=== PATIENT | female | born 2000 | race Caucasian/White ===

== ENCOUNTER 2023-01-03 13:07 | Emergency (ER) | payer OTHER, SELFPAY ==
--- NOTE | ~2023-01-03 | CT_ITS ---
EXAMINATION: CT brain wo con DATE: 01/03/2023 15:28 INDICATION: Head injury TECHNIQUE: Computed tomography (CT) of the head was performed without intravenous contrast. The mA wa s adjusted according to patient size. Iterative reconstruction technique was employed. Exam dose: 52 9.67 mGy-cm total exam DLP. COMPARISON: None FINDINGS: No intracranial mass lesion or hemorrhage or recent cerebrovascular accident. No midline sh ift or mass effect. Normal arshad-white matter differentiation. Normal ventricular size. No subdural or epidural hematoma. No skull fracture or bone destruction is detected. The mastoid air cells and included paranasal sinus es are normally developed and aerated. IMPRESSION: No significant abnormality Reviewed, dictated and finalized at [facility]. Reviewed, dictated and finalized at [facility]. IMPRESSION: No significant abnormality
[2023-01-03 13:23] VITALS: BP 169/104; PULSE 73; RESP 18; TEMP 36.9; O2SAT 100
[2023-01-03] MEDS: KETOROLAC (*BKC) 60 MG/2 ML VIAL IM (16:04)
[2023-01-03] MEDS: ONDANSETRON HCL ODT 4 MG TABLET PO (16:04)
--- NOTE | 2023-01-03 16:04 | ED.GENADULT ---
HPI - General Adult General Chief complaint: Head Injury Stated complaint: head injury Time Seen by Provider: 01/03/23 14:49 Source: patient Limitations: no limitations History of Present Illness HPI narrative: This is a 22-year-old female presents to the ED with chief complaint of a head injury today at work. Patient states she was at work when she bent over and struck her forehead on her desk. Denies any loss of consciousness. Denies any wounds. She does complain of some frontal headache and nausea. Also reports some dizziness and difficulty with memory. Denies numbness, weakness, speech changes, vision changes, vomiting, abdominal pain, chest pain, shortness of breath. Related Data Allergies Allergy/AdvReac Type Severity Reaction Status Date / Time No Known Allergies Allergy Unverified 06/27/17 14:59 Review of Systems Review of Systems: CONSTITUTIONAL: Denies fever, chills, or sweats. EYES: Denies visual changes, redness, or discharge. ENT: Denies rhinorrhea, congestion, sore throat, or otalgia. CARDIOVASCULAR: Denies chest pain, palpitations, or edema. RESPIRATORY: Denies cough or dyspnea. GASTROINTESTINAL: See HPI GENITOURINARY: Denies dysuria or hematuria. SKIN: Denies rash or itching. Denies wounds. MUSCULOSKELETAL: Denies back pain, joint pain, or myalgia. NEUROLOGIC: See HPI PSYCHIATRIC: Denies anxiety or depression. Exam Narrative: GENERAL: Well-appearing, well-nourished, and in no acute distress. HEAD: Normocephalic, atraumatic. Mildly tender area to the right frontal forehead. No bruising or deformity. EYES: PERRLA and EOMI. ENT: Nares clear, no rhinorrhea or epistaxis. Mucous membranes moist. Oropharynx without tonsillar hypertrophy exudate or other lesions. NECK: Supple. No adenopathy or masses. CHEST: No respiratory distress. Clear to auscultation. No wheezes rales or rhonchi HEART: Regular rate and rhythm. No murmur heard. Normal peripheral pulses. ABDOMEN: Soft, nontender, nondistended, normal active bowel sounds. EXTREMITIES: Normal range of motion. No edema. SKIN: Warm, dry, no rash. No wounds. NEURO: Alert and oriented x3. No focal deficits. Coordination intact. Cranial nerves II through XII intact. Negative pronator drift. PSYCH: Normal mood and affect. Course Vital Signs Vital signs: Vital Signs Temperature 98.4 F 01/03/23 13:23 Pulse Rate 73 01/03/23 13:23 Respiratory Rate 18 01/03/23 13:23 Blood Pressure 169/104 H 01/03/23 13:23 Pulse Oximetry 100 01/03/23 13:23 Oxygen Delivery Room Air 01/03/23 13:23 Temperature 98.4 F 01/03/23 13:23 Pulse Rate 73 01/03/23 13:23 Respiratory Rate 18 01/03/23 13:23 Blood Pressure 169/104 H 01/03/23 13:23 Pulse Oximetry 100 01/03/23 13:23 Oxygen Delivery Room Air 01/03/23 13:23 Medical Decision Making MDM Narrative Medical decision making narrative: This is a 22-year-old female presents to the ED with chief complaint of head injury onset this afternoon at work. Bent over and struck her forehead on the desk. Denies LOC. Vitals are stable. Hypertensive due to head pain. Neuro exam is grossly normal. CT head is normal as well. Symptoms are consistent with concussion. Discussed the results of the work-up and what to expect with concussion with patient. She is stable for discharge at this point. States she would like to go home and get some rest return precautions given and supportive measures discussed. Gave Zofran and Toradol here in the ED for pain and nausea. Patient is understanding and agreeable with plan for discharge and follow-up with her PCP regarding this concussion. Vital Signs Vital Signs: Vital Signs Temperature 98.4 F 01/03/23 13:23 Pulse Rate 73 01/03/23 13:23 Respiratory Rate 18 01/03/23 13:23 Blood Pressure 169/104 H 01/03/23 13:23 Pulse Oximetry 100 01/03/23 13:23 Oxygen Delivery Room Air 01/03/23 13:23 Temperature 98.4 F 01/03/23 13:23 Pulse Rate 73
== END 2023-01-03 17:14 | disposition home or self-care (01) ==
PROVIDERS: Emergency Provider Physician Assistant
DX: S09.90XA Unspecified injury of head, initial encounter (principal); W22.8XXA Striking against or struck by other objects, initial encounter
CPT/HCPCS: 70450; 96372; 99284; A9270; J1885

== ENCOUNTER 2023-12-28 13:40 | Outpatient (CLI) | payer BC, SELFPAY ==
[2023-12-28 14:24] LABS: Basophils Absolute Auto 0.1 K/mm3 (0.0-0.1); Basophils Percent Auto 0.6 % (0.2-1.2); Eosinophils Absolute Auto 0.4 K/mm3 (0-0.3); Eosinophils Percent Auto 3.3 % (0-4.4); Hematocrit 43.1 % (37.0-47.0); Hemoglobin 14.1 g/dL (12.0-15.0); Immature Granulocyte Absolute 0.05 K/mm3 (0.00-0.031); Immature Granulocyte Percent A 0.5 % (0-0.5); Lymphocytes Absolute Auto 3.84 K/mm3 (0.9-3.2); Lymphocytes Percent Auto 35.1 % (18.3-44.2); Mean Corpuscular HGB Conc 32.7 g/dl (32-36); Mean Corpuscular Hemoglobin 28.7 pg (26-34); Mean Corpuscular Volume 87.6 fl (80-100); Mean Platelet Volume 10.5 fl (7.4-10.4); Monocytes Absolute Auto 0.8 K/mm3 (0.1-0.6); Neutrophils Absolute Auto 5.9 K/mm3 (1.3-6.7); Neutrophils Percent Auto 53.5 % (45.5-73.1); Platelet Count Result 249 k/mm3 (150-375); Red Blood Count 4.92 M/mm3 (4.2-5.4); Red Cell Distribution Width 13.9 % (11.5-14.5)
[2023-12-28 19:56] LABS: Alanine Aminotransferase 27 U/L (6-35); Albumin Level 4.8 g/dL (3.5-5.1); Alkaline Phosphatase 63 U/L (38-126); Anion Gap 9 mmol/L (4-12); Aspartate Amino Transferase 30 U/L (14-36); Blood Urea Nitrogen 12 mg/dL (7-17); Calcium 10.3 mg/dL (8.4-10.2); Carbon Dioxide 26 mmol/L (22-30); Chloride 102 mmol/L (98-107); Cholesterol 249 mg/dL (0-200); Estimated Glomerular Filt Rate > 60; Glucose 88 mg/dL (65-110); HDL Direct 52 mg/dL; Potassium 4.1 mmol/L (3.4-5.0); Sodium 137 mmol/L (137-145); Triglycerides 253 mg/dL (<150)
[2023-12-28 20:05] LABS: Iron 124 ug/dL (37-170)
[2023-12-28 20:07] LABS: LDL Cholesterol Direct 162 mg/dL
[2023-12-28 20:15] LABS: Percent Iron Saturation 28 % (20-50)
[2023-12-28 21:38] LABS: Folic Acid 13.8 ng/mL (2.76->20)
== END 2023-12-28 13:41 | disposition home or self-care (01) ==
LOC: ANHLAB 13:45
PROVIDERS: PCP Family Medicine Sports Medicine; Visit Provider Family Medicine Sports Medicine
DX: Z00.00 Encounter for general adult medical examination without abnormal findings (principal); R53.83 Other fatigue; Z13.21 Encounter for screening for nutritional disorder
CPT/HCPCS: 36415; 80053; 80061; 82607; 82746; 83540; 83550; 84443; 85025

== ENCOUNTER 2024-10-07 08:20 | Outpatient (RCR) | payer BC, SELFPAY | END 2024-12-23 10:15 | disposition home or self-care (01) | LOC: ANHDMC 08:20 | PROVIDERS: PCP Family Medicine Sports Medicine; Visit Provider Obstetrics & Gynecology | DX: O24.410 Gestational diabetes mellitus in pregnancy, diet controlled (principal); Z71.89 Other specified counseling | CPT/HCPCS: G0108 ==

== ENCOUNTER 2024-10-14 08:07 | Inpatient (IN) | payer BC, SELFPAY ==
[2024-10-14] VITALS (104 sets, daily range): BP systolic 110–152; BP diastolic 41–135; PULSE 59–186; RESP 16; TEMP 36.2–37.6; O2SAT 87–100; BMI 30.4
--- NOTE | 2024-10-14 08:07 | LDADM ---
This patient, Taylor Silva, was admitted to [facility]ivery[facility] on 10/14/24 at 08:07. Plans for labor, pain management and were discussed with patient. Patient/family oriented to hospital policies and general routines including ID bracelet, bed and alarms, visiting hours, pain management, procedures, bathroom and other care routines, personal items, smoking policy, room service/diet and guest tray routines, security routines, and visiting hours. Patient/Family are encouraged to report perceived risks to care and to ask questions if they do not understand what they are told or what they should do. See [facility] for further documentation.
--- OUTSIDE RECORDS SUMMARY | 2024-10-14 08:41 | XMS_ITS | Data Portability ---
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 Plan of Treatment Reminders Order Date Submit Date Provider Last Modified By Organization Details Last Modified Time Details Appointments None recorded. Lab RPR (rapid plasma reagin), serum 2017 018 [place] Marcio, 2022 Juih Anaya, [address], [place], [address], 8 07:12:46 CT + NG + TV, DNA, urine/swa b 2017 018 [place] Michael, 2022 Juhi Anaya, [address], [place], [address], 8 07:12:45 hepatitis panel (A+B+C), acute, serum 2017 018 [place] Michael, 2022 Juhi Anaya, [address], [place], [address], 8 07:12:45 HIV 1+2 AB + HIV 1 p24 Ag, qualitati ve immunoass ay, serum 2017 018 [place] Michael, 2022 Juhi Anaya, [address], [place], [address], 8 07:12:46 test, urine 2017 018 [email or web address] In-Office Order, Internal Use Only DO Not Attach Compendium DO Not Attach Compendium, Do Not Delete/merge, [id number] 8 11:31:52 test, urine 2017 018 [email or web address] In-Office Order, Internal Use Only DO Not Attach Compendium DO Not Attach Compendium, Do Not Delete/merge, [id number] 8 18:39:23 urinalysi s, dipstick 2017 018 [email or web address] In-Office Order, Internal Use Only DO Not Attach Compendium DO Not Attach Compendium, Do Not Delete/merge, [id number] 8 18:39:12 CT + NG + TV, DNA, urine/swa b 2017 018 [place] [facility], 2022 Juhi Anaya, [address], [address], 8 14:09:34 [email or web address] s, dipstick 2017 018 [email or web address] In-Office Order, Internal Use Only DO Not Attach Compendium DO Not Attach Compendium, Do Not Delete/merge, 8 19:03:32 test, urine 2017 018 [email or web address] In-Office Order, Internal Use Only DO Not Attach Compendium DO Not Attach Compendium, Do Not Delete/merge, [id number] 8 19:03:32 Referral gynecolog ist referral 2017 018 [email or web address] Not available 8 11:40:36 Procedures None recorded. Surgeries None recorded. Imaging None recorded. Medication Orders Sprintec (28) 0.25 mg-35 mcg tablet [address] [facility] [facility], [place], [address], 8 16:50:35 Nexplanon 68 mg subdermal implant 2017 018 [facility] [address], [address] [place], [address], 10:30:07 ibuprofen 800 mg tablet 2017 INTERFACE [facility] [address], [address] [place], [address], 8 17:42:49 Xulane 150 mcg-35 mcg/24 hr transderm al patch 2017 INTERFACE [facility] [address], [address] [place], [address], 8 17:42:59 Patient TargetsNo targets recorded. Patient Instructions Encounter Date Encounter Id Patient Instructions Last Modified By Organization Details Last Modified Time 12/01/[id number] Patient is UTD on all vaccines - Vidya Barton to enter vaccines into [facility] and patient given copy of vaccine record [email or web address] Not available 12/01/2017 11:26:59 06/27/2018 [id number] painful menstrual cramps: care instructions [email or web address] Not available 06/27/2018 17:42:46 Reason for Referral Nitroglycerin Neutralizer Referral for Ad ult health examination Referring Physician: Shimon Aguilar, Internal Medicine, Encounter Date: 11/14/2017 Results Created Date Observation Date Name Description Value Unit Range Abnormal Flag Note LastModifiedBy Organization Detail LastModifiedTime 06/27/20 18 06/27/2018 pregn kenna test, urine HCG negati ve Not Available In-Office Order Internal Use Only DO Not Attach Compendium DO Not Attach Compendium, Do Not Delete/merge, [id number] 06/27/2018 16:52:50 06/27/20 18 06/27/2018 urina lysis , dipst ick Leukocytes Negati ve Not Available In-Office Order Internal Use Only DO Not Attach Compendium DO Not Attach Compendium, Do Not Delete/merge, [id number] 06/27/2018 16:52:47 06/27/20 18 06/27/2018 urina lysis , dipst ick Nitrite negati ve Not Available In-Office Order Internal Use Only DO Not Attach Compendium DO Not Attach Compendium, Do Not Delete/merge, [id number] 06/27/2018 16:52:47 06/27/20 18 06/27/2018 urina lysis , dipst ick Urobilinogen .2 Not Available In-Of fice Order Internal Use Only DO Not Attach Compendium DO Not Attach Compendium, Do Not Delete/merge, 06/27/2018 16:52:47 06/27/20 18 06/27/2018 urina lysis , dipst ick Protein Trace Not Available In-Office Order Internal Use Only DO Not Attach Compendium DO Not Attach Compendium, Do Not Delete/merge, 06/27/2018 16:52:47 06/27/20 18 06/27/2018 urina lysis , dipst ick pH 7.0 Not Available In-Office Order Internal Use Only DO Not Attach Compendium DO Not Attach Compendium, Do Not Delete/merge, 06/27/2018 16:52:47 06/27/20 18 06/27/2018 urina lysis , dipst ick Blood Non-He molyze d: Trace Not Available In-Office Order Internal Use Only DO Not Attach Compendium DO Not Attach Compendium, Do Not Delete/merge, 06/27/2018 16:52:47 06/27/20 18 06/27/2018 urina lysis , dipst ick Specific [place] 1.020 Not Available In-Off ice Order Internal Use Only DO Not Attach Compendium DO Not Attach Compendium, Do Not Delete/merge, 06/27/2018 16:52:47 06/27/20 18 06/27/2018 urina lysis , dipst ick Ketone Negati ve Not Available In-Office Order Internal Use Only DO Not Attach Compendium DO Not Attach Compendium, Do Not Delete/merge, 06/27/2018 16:52:47 06/27/20 18 06/27/2018 urina lysis , dipst ick Bilirubin Negati ve Not Available In-Office Order Internal Use Only DO Not Attach Compendium DO Not Attach Compendium, Do Not Delete/merge, 06/27/2018 16:52:47 06/27/20 18 06/27/2018 urina lysis , dipst ick Glucose Negati ve Not Available In-Office Order Internal Use Only DO Not Attach Compendium DO Not Attach Compendium, Do Not Delete/merge, [id number] 06/27/2018 16:52:47 04/11/20 18 04/11/2018 urina lysis , dipst ick Leukocytes Negati ve Not Available In-Office Order Internal Use Only DO Not Attach Compendium DO Not Attach Compendium, Do Not Delete/merge, 04/11/2018 17:26:42 04/11/20 18 04/11/2018 urina lysis , dipst ick Nitrite negati ve Not Available In-Office Order Internal Use Only DO Not Attach Compendium DO Not Attach Compendium, Do Not Delete/merge, 04/11/2018 17:26:42 04/11/20 18 04/11/2018 urina lysis , dipst ick Urobilinogen 1 Not Available In-Of fice Order Internal Use Only DO Not Attach Compendium DO Not Attach Compendium, Do Not Delete/merge, 04/11/2018 17:26:42 04/11/20 18 04/11/2018 urina lysis , dipst ick Protein Negati ve Not Available In-Office Order Internal Use Only DO Not Attach Compendium DO Not Attach Compendium, Do Not Delete/merge, 04/11/2018 17:26:42 04/11/20 18 04/11/2018 urina lysis , dipst ick pH 5.5 Not Available In-Office Order Internal Use Only DO Not Attach Compendium DO Not Attach Compendium, Do Not Delete/merge, 04/11/2018 17:26:42 04/11/20 18 04/11/2018 urina lysis , dipst ick Blood Non-He molyze d: Trace Not Available In-Office Order Internal Use Only DO Not Attach Compendium DO Not Attach Compendium, Do Not Delete/merge, 04/11/2018 17:26:42 04/11/20 18 04/11/2018 urina lysis , dipst ick Specific [place] 1.025 Not Available In-Off ice Order Internal Use Only DO Not Attach Compendium DO Not Attach Compendium, Do Not Delete/merge, 04/11/2018 17:26:42 04/11/20 18 04/11/2018 urina lysis , dipst ick Ketone Negati ve Not Available In-Office Order Internal Use Only DO Not Attach Compendium DO Not Attach Compendium, Do Not Delete/merge, [id number] 04/11/2018 17:26:42 04/11/20 18 04/11/2018 urina lysis , dipst ick Bilirubin Negati ve Not Available In-Office Order Internal Use Only DO Not Attach Compendium DO Not Attach Compendium, Do Not Delete/merge, [id number] 04/11/2018 17:26:42 04/11/20 18 04/11/2018 urina lysis , dipst ick Glucose Negati ve Not Available In-Office Order Internal Use Only DO Not Attach Compendium DO Not Attach Compendium, Do Not Delete/merge, [id number] 04/11/2018 17:26:42 04/11/20 18 04/11/2018 pregn kenna test, urine HCG negati ve Not Available In-Office Order Internal Use Only DO Not Attach Compendium DO Not Attach Compendium, Do Not Delete/merge, [id number] 04/11/2018 17:26:40 12/02/19 18 12/01/2017 pregn kenna test, urine HCG negati ve Not Available In-Office Order Internal Use Only DO Not Attach Compendium DO Not Attach Compendium, Do Not Delete/merge, [id number] 12/01/2017 10:59:54 12/02/19 18 12/02/2017 hepat itis panel (A+B+ C), acute , serum hep A Ab, IgM Negati ve negati ve Not Available [facility] ([facility]) [address] [place], [address], 12/05/2017 07:12:45 12/02/19 18 12/02/2017 hepat itis panel (A+B+ C), acute , serum HBsAg screen Negati ve negati ve Not Available [facility] ([facility]) [address] [place], [address], 12/05/2017 07:12:45 12/02/19 18 12/02/2017 hepat itis panel (A+B+ C), acute , serum hep B core Ab, IgM Negati ve negati ve Not Available [facility] ([facility]) [address] [facility], [place], [address], 12/05/2017 07:12:45 12/02/19 18 12/02/2017 hepat itis panel (A+B+ C), acute , serum hep C virus Ab <0.1 s/co_ ratio 0.0-0. 9 Negat naresh: < 0.8 Indet ermin ate: 0.8 - 0.9 Posit naresh: > 0.9 The [facility] recom mends that a posit naresh HCV antib little resul t be follo wed up with a HCV Nucle ic Acid Ampli ficat ion test (5508 13). Not Available [facility] ([facility]) [address] [facility], [place], [address], 12/05/2017 07:12:45 12/02/19 18 12/05/2017 CT + NG + TV, DNA, urine /swab chlamydia by RICARDO Negati ve negati ve Not Available [facility] ([facility]) [address] [place], [address], 12/05/2017 07:12:45 12/02/19 18 12/05/2017 CT + NG + TV, DNA, urine /swab gonococcus by RICARDO Negati ve negati ve Not Available [facility] ([facility]) [address] [place], [address], 12/05/2017 07:12:45 12/02/19 18 12/05/2017 CT + NG + TV, DNA, urine /swab trich vag by RICARDO Negati ve negati ve Not Available [facility] ([facility]) [address] [place], [address], 12/05/2017 07:12:45 12/02/19 18 12/02/2017 RPR (rapi d plasm a reagi n), serum RPR Non Reacti ve non reacti ve Not Available [facility] ([facility]) [address] [place], [address], 12/05/2017 07:12:46 12/02/19 18 12/02/2017 HIV 1+2 AB + HIV 1 p24 Ag, quali tativ e immun oassa y, serum HIV screen 4TH generation wrfx Non Reacti ve non reacti ve Not Available [facility] ([facility]) [address] [place], [address], 12/05/2017 07:12:46 04/11/20 18 04/14/2018 CT + NG + TV, DNA, urine /swab chlamydia by RICARDO NEGATI VE negati ve Not Available [facility] ([facility]) [address] [place], [address], 04/14/2018 14:09:34 04/11/20 18 04/14/2018 CT + NG + TV, DNA, urine /swab gonococcus by RICARDO NEGATI VE negati ve Not Available [facility] ([facility]) [address] [place], [address], 04/14/2018 14:09:34 04/11/20 18 04/14/2018 CT + NG + TV, DNA, urine /swab trich vag by RICARDO NEGATI VE negati ve Not Available [facility] ([facility]) [address] [place], [address], 04/14/2018 14:09:34 08/01/20 18 XR, abdom en No observ [facility]ion [facility] ed[facility] 2017 13:46:58 Result Notes None recorded. Problems No Known Problems Procedures Surgical History Date Name Laterality Status Provider Name and Address Organization Details Recorded Time 8 Control Implant Insertion completed Theo ALVAREZ - [facility] 04/11/2018 18:16:57 Imaging Results Imaging Date Name Status LastModified by Organiz ation Details LastModified Time 08/01/2018 XR, abdomen completed [facility] Information n ot available 08/01/2018 13:46:58 Procedure Notes None recorded. Medical Equipment None Reported. Allergies No known drug allergies Medications Name Sig Start Date Stop Date Status Note LastModified by Organization Details LastModified Time ibuprofen 800 mg tablet Take 1 tablet 3 times a day by oral route. 2017 active Not Available Not Available Not Kathy mcintyre Sprintec (28) 0.25 mg-35 mcg tablet Take 1 tablet every day by oral route. 06/27 completed Not Available Not Available Not Available Nexplanon 68 mg subdermal implant Inject 1 implant by subcutane ous route. 2017 active Not Available Not Available Not Kathy mcintyre Xulane 150 mcg-35 mcg/24 hr transdermal patch Apply 1 patch every week by transderm al route. 2017 active Not Available Not Available Not Kathy mcintyre Vitals Date Recorded Body height Provider Name an d Address Organization Details Last Updated DateTime 11/14/2017 151.13 cm Fermin Shepard MA [facility] 2017 14:11:46 Date Recorded Body mass index (BMI) Body weight Provider Name and Address Organization Details Last Updated DateTime 11/14/2017 20.9 kg/m2 04256.64 g Fermin Shepard MA [facility] 11/14/2017 14:11:50 Date Recorded Body temperature Provider Name a nd Address Organization Details Last Updated DateTime 11/14/2017 98.1 [degF] Fermin Shepard MA [facility] 11/14/2017 14:14:16 Date Recorded Oxygen saturation Oxygen saturation in Arterial blood by Pulse oximetry Provider Name and Address Organization Details Last Updated DateTime 11/14/2017 99 % 99 % Fermin Shepard [place] [facility] [place] [facility] 11/14/2017 14:14:33 Date Recorded Heart rate Provider Name an d Address Organization Details Last Updated DateTime 11/14/2017 83 /min Fermin Shepard MA [facility] 2017 14:14:36 Date Recorded Body height Provider Name an d Address Organization Details Last Updated DateTime 12/01/2017 151.13 cm JORGE Matta [facility] 2017 10:45:58 Date Recorded Body mass index (BMI) Body weight Provider Name and Address Organization Details Last Updated DateTime 12/01/2017 21.6 kg/m2 74234.57 g Vidya Barton MA [facility] 12/01/2017 10:46:15 Date Recorded Body height Provider Name an d Address Organization Details Last Updated DateTime 03/07/2018 151.13 cm Ferminjose MajorJORGE oglesby [facility] 2017 16:13:31 Date Recorded Body mass index (BMI) Body weight Provider Name and Address Organization Details Last Updated DateTime 03/07/2018 21.8 kg/m2 50772.44 g Fermin Shepard MA [facility] 03/07/2018 16:37:16 Date Recorded Body temperature Provider Name a nd Address Organization Details Last Updated DateTime 03/07/2018 98.2 [degF] Fermin Shepard MA [facility] 03/07/2018 16:38:16 Date Recorded Oxygen saturation Oxygen saturation in Arterial blood by Pulse oximetry Provider Name and Address Organization Details Last Updated DateTime 03/07/2018 99 % 99 % Efrminjose ShepardJORGE [facility] 03/07/2018 16:38:34 Date Recorded Heart rate Provider Name an d Address Organization Details Last Updated DateTime 03/07/2018 71 /min Fermin Majorer JORGE [facility] 2017 16:38:37 Date Recorded Body height Provider Name an d Address Organization Details Last Updated DateTime 04/11/2018 151.13 cm Kajal Chavez MA [facility] 04/11 17:16:24 Date Recorded Body mass index (BMI) Body weight Provider Name and Address Organization Details Last Updated DateTime 04/11/2018 21.1 kg/m2 49427.79 g Kajal Chavez MA [facility] 04/11/2018 17:16:32 Date Recorded Body height Provider Name an d Address Organization Details Last Updated DateTime 06/27/2018 151.13 cm Camille Briggs MA [facility] 06/27/2018 16:50:13 Date Recorded Body mass index (BMI) Body weight Provider Name and Address Organization Details Last Updated DateTime 06/27/2018 22.2 kg/m2 81164.35 g Camille Briggs MA [facility] 16:50:17 Date Recorded Systolic blood pressure Diastolic blood pressure Provider Name and Address Organization Details Last Updated DateTime 11/14/2017 106 mm[Hg] 74 mm[Hg] Fermin Shepard MA [facility] 11/14/2017 14:16:10 Date Recorded Systolic blood pressure Diastolic blood pressure Provider Name and Address Organization Details Last Updated DateTime 12/01/2017 104 mm[Hg] 62 mm[Hg] Vidya Barton MA [facility] 12/01/2017 10:53:32 Date Recorded Systolic blood pressure Diastolic blood pressure Provider Name and Address Organization Details Last Updated DateTime 03/07/2018 100 mm[Hg] 62 mm[Hg] Fermin Shepard [facility] 03/07/2018 16:40:12 Date Recorded Systolic blood pressure Diastolic blood pressure Provider Name and Address Organization Details Last Updated DateTime 06/27/2018 118 mm[Hg] 70 mm[Hg] Camille JORGE Briggs [place] [facility] 06/27/2018 16:50:24 Social History Question Answer Notes LastModified by Organizat ion Details LastModified Time Tobacco Smoking Status Never Smoker Fermin Shepard [place], [place] [facility] 11/14/2017 14:12:26 Do You Have An Advance Directive? No Information not available 12/01/2017 What Is Your Level Of Alcohol Consumption? None [email or web address] Information not available 11/14/2017 Is Blood Transfusion Acceptable In An Emergency? Yes [email or web address] Information not available 04/11/2018 What Is Your Level Of Caffeine Consumption? Occasional Information not available 12/01/2017 How Much Tobacco Do You Chew? None Information not available 12/01/2017 Are You Currently Employed? Yes [employer] [email or web address] Information not available 04/11/2018 What Type Of Diet Are You Following? REGULAR Information not available 12/01/2017 Which Illicit Or Recreational Drugs Have You Used? None Information not available 12/01/2017 Education 12 Freshman @ [employer] Information not available 12/01/2017 What Is Your Occupation? [employer] Information not available 12/01/2017 Hard Of Hearing Or Deaf In One Or Both Ears? No Information not available 12/01/2017 Legally Blind In One Or Both Eyes? No Information not available 12/01/2017 Live Alone Or With Others? With Others With Parents Going To Move Out Soon [email or web address] Information not available 04/11/2018 Marital Status Single Informatio n not available 12/01/2017 What Was The Date Of Your Most Recent Tobacco Screening? 06/27/2018 Information not available 04/11/2019 How Many Children Do You Have? 0 [email or web address] Information not available 04/11/2018 Performs Monthly Self-breast Exam? No Information not available 12/01/2017 Do You Use Protection During Sex? Usually [email or web address] Information not available 04/11/2018 What Is Your Relationship Status? Single [email or web address] Information not available 04/11/2018 Seat Belts Used Routinely Yes Information not available 12/01/2017 Are You Sexually Active? Yes [email or web address] Information not available 04/11/2018 Smoke Alarm In Home Yes Information not available 12/01/2017 How Much Tobacco Do You Smoke? No [email or web address] Information not available 04/11/2018 General Stress Level Medium Information not available 12/01/2017 Do You Use Sunscreen Routinely? Yes Information not available 12/01/2017 How Many Years Have You Smoked Tobacco? 0 [email or web address] Information not available 04/11/2018 Sex: Unknown Functional Status Question Answer Note LastModified by Organization D etails LastModified Time What is your exercise level? None Information not available 12/01/2017 Mental Status None recorded. Family History Relationship Description Onset Age of this Age Resolved Age Notes LastModified by Organization Details LastModified Time Father No current problems or disability Not available 11/16 10:48:01 Mother No current problems or disability Not available 11/16 10:48:01 Paternal Grandfather Family history of malignant neoplasm [email or web address] Not available 04/11 17:22:57 Paternal Grandfather Diabetes mellitus [email or web address] Not available 04/11 17:23:23 Paternal Grandmother Diabetes mellitus [email or web address] Not available 04/11 17:23:23 Maternal Grandmother Diabetes mellitus [email or web address] Not available 04/11 17:23:45 Medical History Condition Response Coronary Artery Disease N Other N Atrial Fibrillation N High Blood Pressure N Breast Cancer N Thyroid Problems N Kidney or Bladder Problems N Lung Disease N Depression N COPD N Blood Clots N GI Problems N Acne Y Breast Problem N Eating Disorder N Anemia Heart Attack ([place]) N Headaches/Migraines N Anxiety Disorder Y Diabetes N Ovarian Cancer N Muscle, Joint, or Bone Problems N Blood Transfusions N Seizures/Epilepsy N Infertility N Polyps N Acid Reflux (GERD) N Cancer N Abuse/Domestic Violence N Asthma N Endometriosis N High Cholesterol N Hepatitis N Liver Disease N Heart Disease N Headaches Y Pre-Eclampsia N Heart Failure N Osteoporosis N Gynecological History Statement/Question Response Flow Heavy Date of LMP 02/27/2018 STIs/STDs N HPV Vaccine Y Duration of Flow (days) 5 Age at Menarche 11 Current Control Method Implant Age at First Child 11 Frequency of Cycle (Q days) 28 Sexually Active? Y Menses Monthly Y Sexual Problems? N LMP Approximate Obstetrics History GPAL:G 0 P 0 0 0 0 Type Value Multiple Births 0 Full Term 0 Induced 0 Spontaneous 0 Premature 0 Living 0 Ectopics 0 Total 0 Immunizations Vaccine Type Date Status Note Provider Nam e and Address Organization Details Recorded Time varicella 8 completed Not Available [facility] 10/05/2019 02:35:19 Tdap 0 completed Elena Thibodeaux PA-C Attn: [address] [place], [address], [facility] 12/01/2017 10:57:21 varicella 4 completed Elena Thibodeaux PA-C Attn: [address] [place], [address], [facility] 12/01/2017 12:59:48 polio, unspecified formulation 8 completed Elena Thibodeaux PA-C Attn: [address] [place], [address], [facility] 12/01/2017 13:00:04 polio, unspecified formulation 9 completed Elena Thibodeaux PA-C Attn: [address] [place], [address], [facility] 12/01/2017 13:00:08 polio, unspecified formulation 9 loren Thibodeaux PA-C Attn: Accounting[address] [facility], [place], [address], [place] [facility] 12/01/2017 13:00:12 polio, unspecified formulation 4 completed Elena Thibodeaux PA-C Attn: Accounting[address] [facility], [place], [address], [place] [facility] 12/01/2017 13:00:15 meningococcal ACWY, unspecified formulation 0 completed Elena Thibodeaux PA-C Attn: Accounting,[address] [facility], [place], [address], [place] [facility] 12/01/2017 13:00:27 meningococcal ACWY, unspecified formulation 3 completed Elena Thibodeaux PA-C Attn: Accounting,[address] [facility], [place], [address], [place] [facility] 12/01/2017 13:00:34 MMR 9 completed Elena Thibodeaux PA-C Attn: Accounting,[address] [facility], [place], [address], [place] [facility] 12/01/2017 13:00:43 MMR 0 completed Elena Thibodeaux PA-C Attn: Accounting,[address] [facility], [place], [address], [place] [facility] 12/01/2017 13:00:47 HPV, unspecified formulation 0 completed Elena Thibodeaux PA-C Attn: Accounting,[address] [facility], [place], [address], [place] [facility] 12/01/2017 13:01:02 HPV, unspecified formulation 2 completed Elena Thibodeaux PA-C Attn: Accounting,[address] [facility], [place], [address], [place] [facility] 12/01/2017 13:01:10 HPV, unspecified formulation 3 completed Elena Thibodeaux PA-C Attn: Accounting[address] [facility], [place], [address], [place] [facility] 12/01/2017 13:01:16 Hep B, unspecified formulation 8 completed Elena Thibodeaux PA-C Attn: Accounting[address] [facility], [place], [address], [place] [facility] 12/01/2017 13:01:31 Hep B, unspecified formulation 8 completed Elena Thibodeaux PA-C Attn: Accounting[address] [facility], [place], [address], [place] [facility] 12/01/2017 13:01:38 Hep B, unspecified formulation 9 completed Elena Thibodeaux PA-C Attn: Accounting,[address] [facility], [place], [address], [place] [facility] 12/01/2017 13:02:03 Hep A, pediatric, unspecified formulation 2 completed Elena Thibodeaux PA-C Attn: Accounting,[address] [facility], [place], [address], [place] [facility] 12/01/2017 13:02:13 Hep A, pediatric, unspecified formulation 3 completed Elena Thibodeaux PA-C Attn: Accounting,[address] [facility], [place], [address], [place] [facility] 12/01/2017 13:02:17 Hib, unspecified formulation 8 completed Elena Thibodeaux PA-C Attn: Accounting,[address] [facility], [place], [place], [address], [place] - [facility] 12/01/2017 13:02:44 Hib, unspecified formulation 9 completed Elena Thibodeaux PA-C Attn: Accounting,204 1 [facility], [place], [address], [place] [facility] 12/01/2017 13:02:49 Hib, unspecified formulation 9 completed Elena Thibodeaux PA-C Attn: Accounting,204 1 [facility], [place], [address], [facility] - [facility] 12/01/2017 13:02:53 Hib, unspecified formulation 0 completed Elena Thibodeaux PA-C Attn: Accounting,204 1 [facility], [place], [address], [facility] - [facility] 12/01/2017 13:02:59 DTP 8 completed Elena Thibodeaux PA-C Attn: Accounting,204 1 [facility], [place], [address], [facility] - [facility] 12/01/2017 13:03:09 DTP 9 completed Elena Thibodeaux PA-C Attn: Accounting,204 1 [facility], [place], [address], [facility] - [facility] 12/01/2017 13:03:13 DTP 9 completed Elena Thibodeaux PA-C Attn: Accounting,204 1 [facility], [place], [address], [facility] - [facility] 12/01/2017 13:03:18 DTP 0 completed Elena Thibodeaux PA-C Attn: Accounting,204 1 [facility], [place], [address], [facility] - [facility] 12/01/2017 13:03:23 Past Encounters Encounter ID Performer Location Encounter Start Date Encounter Closed Date Diagnosis/Indication Diagnosis SNOMED-CT Code Diagnosis ICD10 Code Diagnosis Note [id number] [facility] (Adult Med) [address] [place] [address] 11/14/2017 13:57:02 11/14/2017 14:35:31 Adult health examination 265818632 Z00.00 [id number] [facility] (HIGH SCHOOL PROFESSIONAL) [address] [place] [address] 12/01/2017 10:29:30 12/04/2017 11:33:11 Contraception care management 219969185 Z30.9 Condoms to prevent against STDsStart OCPs Monday after your start your next cycle - given informatio n concerning Nexplanon as well Venereal d isease screening 491490604 Z11.3 Active or passive immunization 692679119 Z23 [id number] MD Sully Hung (Adult Med) [address] [place] [address] 03/07/2018 15:53:55 03/12/2018 11:10:16 Chronic anxiety 284821451 F41.9 Called today, appointmen t 03-30-2018 and 04-19-2018 at [facility], she said that her father just taxed her to tell this office to prescribe what he ias taking, but Dr. Aguilar explained to her that he can not compare apple vs orange, even her diagnosis has not been establishe d with certainty, therefor it is best to go to behavior health clinic for the profession al help, she understood and agreed, she also can go to ER any time for any concern. [id number] Theo Virk (HIGH SCHOOL PROFESSIONAL) [address] [place] [address] 04/11/2018 16:32:18 04/12/2018 12:51:55 Family planning education 603301081 Z30.02 Insertion of subcutaneous contraceptive 741501047 Z30.516 [id number] Theo Virk (HIGH SCHOOL PROFESSIONAL) [address] [place] [address] 06/27/2018 15:53:19 06/28/2018 09:21:15 Surveillance of subcutaneous contraceptive implant 797030235 Z30.46 Family lilliam nning surveillance 944214295 Z30.09 Dysmenorrhea 172891316 N 94.6 Health Concerns Section Related Observation LastModified by Organization Detai ls LastModified Time None Recorded Concern Status LastModified by Organization Details LastModified Time None Recorded Advance Directives Directive N: Payers Encounter Date Sequence Insurance Name Policy Number Policy Gambino Covered Member ID Gambino Member ID Guarantor Name 11/14/2017 1 [place] [facility] Taylor Silva [id number] Taylor Silva 12/01/2017 1 [place] [facility] Taylor Silva [id number] Taylor Silva 03/07/2018 2 [facility] - DOS PRIOR TO 2021 (MEDICAID REPLACEMENT - HMO) Taylor Silva [id number] Taylor Silva 03/07/2018 1 [facility] Taylor Silva [id number] Taylor Silva 04/11/2018 2 [facility] PRIOR TO 03/18/2021 (MEDICAID REPLACEMENT - HMO) Taylor Silva [id number] Taylor Silva 04/11/2018 1 [facility] Taylor Silva [id number] Taylor Silva 06/27/2018 2 [facility] PRIOR TO 03/18/2021 (MEDICAID REPLACEMENT - HMO) Taylor Silva [id number] Taylor Silva 06/27/2018 1 [facility] Taylor Silva [id number] Taylor Silva Notes Date Note Type Note Provider Name and Address Organization Details Recorded Time 11/14/2017 text/html First time, [facility] is here. control, NKDA. Fermin Shepard MA null, [facility] 11/14/2017 14:41:33 12/01/2017 text/html 17YO female presents for OCP consultation. Has been on OCPs in the past without an issue. Vidya Barton MA null, [place] - [facility] 12/01/2017 13:01:49 03/07/2018 text/html She said that sh meet has bad anxiety, but she dose not go to behavior health clinic as referred since last office visit 11-14-2017, and she saw PAC Ms. Thibodeaux on 03-06-2018. Shimon Aguilar MD Attn: Accounting,[address] [place], [address], [facility] - [facility] 03/07/2018 17:30:01 04/11/2018 text/html OCP CheckReporte d bypatient.Associate d Symptoms:regular menses; no BTB menses; no side effects 17YO female presents for bc consultation. desires nexplanon Theo Pearl null, [place] [facility] 04/11/2018 20:08:39 06/27/2018 text/html OCP CheckReporte d bypatient.Context:n umber of OCP cycles completed:3; reason for starting OCPs: control Associated Symptoms:no BTB menses;irregular menses; pelvic pain 18yo WF, , presents to clinic for Nexplanon check. Placed 04/11/18. She reports painful menses and menorrhagia. Theo Pearl [facility], [place] - [facility] 06/27/2018 23:35:41 OBGyn Episode No OBEpisode recorded.
--- OUTSIDE RECORDS SUMMARY | 2024-10-14 08:42 | XMS_ITS | Referral Summary ---
Author Organization [facility] Address [address] [place] [address] Care Team Providers Care Correctional Classification Counselor Name Role Phone Kishor Giang MD Primary Care Provider [phone] Source Comments [facility],non-owned Affiliates and Associated Physician Practices is amultiple site organization consisting of ambulatory clinics and hospital sitesin [place], [place], [place] and [place]. This disclosure is being madepursuant to the Care Everywhere program and may not contain all information available regarding this patient. Last updated 18.[facility] Allergies No known active allergies Medications * Be aware that medications may not be up to date on this document. Alwaysverify current medications with the patient. Medication Sig Dispensed Refills Start Date End Date Status Vit-Fe Fumarate-FA ( vitamin) 28-0.8 MG tablet Take 1 (one) tablet by mouth once daily Active PROGESTERONE, VAGINAL, 4 % Insert into the vagina once daily Active indomethacin (Indocin) 25 MG capsule Take 1 (one) capsule by mouth every 6 hours 7 capsule 06/26/2024 Active Progesterone 200 MG capsule Take 1 (one) capsule by mouth at bedtime 90 capsule 1 06/26/2024 Active Active Problems Problem Noted Date Diagnosed Date Pelvic pain during in second trimester, antepartum 06/25/2024 Estimated Date of Delivery Comme nts Yes 11/06/2024 Based on Patient Reported Immunizations Name Administration Dates Next Due DTaP VACCINE IM (6wk-6yrs) 10/26/1999,04/01/1999 ,1998,1998 HEP A PEDS 2 DOSE 04/03/2013,04/10/2012 HEP B VACCINE, PED/ADOL 1998,1998, HIB-PRP-T 4 DOSE 10/26/2009,04/01/1999, 9,1998 Human Papilloma Virus Vaccine 04/03/2013, 012,05/03/2010 MENINGOCOCAL MENINGITIS 04/03/2013 MMR 05/03/2010,04/01/1999 POLIO IPV 01/07/2014,04/01/1999,1998 ,1998 TDAP (7yrs+) 05/03/2010 VARICELLA 01/07/2014 Social History Tobacco Use Types Packs/Day Years Used Date Smoking Tobacco: Passive Smo ke Exposure - Never Smoker Smokeless Tobacco: Never Alcohol Use Standard Drinks/Week Comments No 0 (1 standard drink = 0.6 oz pur e alcohol) Overall Financial Resource Strain (CARDIA) Answe r Date Recorded How hard is it for you to pa y for the very basics like food, housing, medical care, and heating? Not hard at all 06/25/2024 [facility] - Occupational Stress Questionnaire Answer Date Recorded Do you feel stress - tense, restless, nervous, or anxious, or unable to sleep at night because your mind is troubled all the time - these days? Not at all 06/25/2024 Hunger Vital Sign Answer Date Recorded Within the past 12 months, y ou worried that your food would run out before you got the money to buy more. Never true 06/25/20 24 Within the past 12 months, t he food you bought just didn't last and you didn't have money to get more. Never true 06/25/2024 PRAPARE - Transportation Answer Date Re corded In the past 12 months, has l ack of transportation kept you from medical appointments or from getting medications? No 04/2024 In the past 12 months, has l ack of transportation kept you from meetings, work, or from getting things needed for daily living? No 06/25/2024 Housing Stability Vital Sign Answer Dilip e Recorded In the last 12 months, was t here a time when you were not able to pay the mortgage or rent on time? No 06/25/2024 In the last 12 months, how many places have you lived? 1 06/25/2024 In the last 12 months, was t here a time when you did not have a steady place to sleep or slept in a nursing home (including now)? No 06/25/2024 Estimated Date of Delivery Comme nts Yes 11/06/2024 Based on Patient Reported Sex and Gender Information Value Date Recorded Sex Assigned at Not on file Gender Identity Not on file Sexual Orientation Not on file Last Filed Vital Signs Vital Sign Reading Time Taken Comments Blood Pressure 122/72 06/26/2024 2:20 PM CDT Pulse 60 06/26/2024 2:20 PM CDT Temperature 36.5 ??C (97.7 ??F) 06/26/2024 2:20 PM CD T Respiratory Rate 18 06/26/2024 2:20 PM CDT Oxygen Saturation 99% 06/26/2024 2:20 PM CDT Inhaled Oxygen Concentration - - Weight 73.5 kg (162 lb) 06/25/2024 11:18 AM CDT Height 165.1 cm (5' 5 ) 06/25/2024 11:18 AM CDT Body Mass Index 26.96 06/25/2024 11:18 AM CDT Functional Status Functional Status Response Date of Assess ment Is person deaf or have serious hearing difficult y? No 06/25/2024 Is person blind or have serious difficulty seein g? No 06/25/2024 Does person have serious dif ficulty walking/climbing stairs? No 06/25/2024 Does person have difficulty dressing/bathing? No 06/25/2024 Does person have difficulty doing errands alone? No 06/25/2024 Cognitive Status Response Date of Assessm ent Does person have difficulty concentrating/remembering/making decisions? No 06/25/2024 Plan of Treatment Upcoming Encounters Date Type Department Care Team (Late st Contact Info) Description 11/06/2024 Hospital Encounter [facility] [address] [place] [address] Advance Directives * Full Code (Latest Code Status on File) Date Activated Date Inactivated Comments 06/25/2024 3:24 PM 06/26/2024 6:09 PM * Full Code Date Activated Date Inactivated Comments 06/25/2024 11:25 AM 06/25/2024 3:24 PM Care Teams Correctional Classification Counselor Relationship Specialty Start Date End Date Kishor Giang MD [address] [address] PCP - General Pediatrics 01/07/14
--- OUTSIDE RECORDS SUMMARY | 2024-10-14 08:42 | XMS_ITS | Patient Health Summary ---
Author Organization [facility] Address [address] [place] [address] Care Team Providers Care Section Laborer Name Role Phone Kishor Giang MD Primary Care Provider [phone] Note from [facility],non-owned Affiliates and Associated Physician Practices is amultiple site organization consisting of ambulatory clinics and hospital sitesin [place], [place], [place] and [place]. This disclosure is being madepursuant to the Care Everywhere program and may not contain all information available regarding this patient. Last updated 18.[facility] Allergies No known active allergies Medications * Be aware that medications may not be up to date on this document. Alwaysverify current medications with the patient. * Vit-Fe Fumarate-FA ( vitamin) 28-0.8 MG tablet Take 1 (one) tablet by mouth once daily * PROGESTERONE, VAGINAL, 4 % Insert into the vagina once daily * indomethacin (Indocin) 25 MG capsule(Started 06/26/2024) Take 1 (one) capsule by mouth every 6 hours * Progesterone 200 MG capsule(Started 06/26/2024) Take 1 (one) capsule by mouth at bedtime 1 refill by 06/26/2025 Active Problems Problem Noted Date Diagnosed Date Pelvic pain during in second trimester, antepartum 06/25/2024 Immunizations * DTaP VACCINE IM (6wk-6yrs)(Given 10/26/1999, 04/01/1999, 1998, 1998) * HEP A PEDS 2 DOSE(Given 04/03/2013, 04/10/2012) * HEP B VACCINE, PED/ADOL(Given 1998, 1998, 1998) * HIB-PRP-T 4 DOSE(Given 10/26/2009, 04/01/1999, 1998, 1998) * Human Papilloma Virus Vaccine(Given 04/03/2013, 04/10/2012, 05/03/2010) * MENINGOCOCAL MENINGITIS(Given 04/03/2013) * MMR(Given 05/03/2010, 04/01/1999) * POLIO IPV(Given 01/07/2014, 04/01/1999, 1998, 1998) * TDAP (7yrs+)(Given 05/03/2010) * VARICELLA(Given 01/07/2014) Social History Tobacco Use Types Packs/Day Years [...] and heating? Not hard at all 06/25/2024 [facility] of Occupat ional Health - Occupational Stress [...] place to sleep or slept in a detention (including now)? No 06/25/2024 Estimated Date of [...] Mass Index 26.96 06/25/2024 11:18 AM CDT Procedures * SONOGRAM - COMPLETE(Performed 07/12/2024) Performed for 22 weeks gestation of ([facility]), Encounter for screening for cervicallength ([facility]), Encounter for follow-up ultrasound of anatomy ([facility]), Cervical cerclage suture present in second trimester ([facility]) * SONOGRAM - TRANSVAGINAL(Performed 07/02/2024) Performed for Cervical cerclage suture present in second trimester ([facility]), Encounter for routine ultrasound ([facility]), Pelvic pain during in second trimester, antepartum ([facility]), 22 weeks gestation of ([facility]) * CARDIAC RHYTHM STRIP ORDER(Performed 06/27/2024) * NEURAXIAL BLOCK(Performed 06/26/2024) * WA REVISION CERVIX W PREG,VAG APPRCH(Performed 06/26/2024) Performed for Diagnosis unknown * TYPE + SCREEN PANEL(Performed 06/25/2024) * RPR W REFLEX TO TITER (MONITOR)(Performed 06/25/2024) Performed for Elevated blood pressure affecting in second trimester, antepartum ([facility]) * SONOGRAM - TRANSVAGINAL(Performed 06/25/2024) * TRICHOMONAS RAPID TEST(Performed 06/25/2024) Performed for Pelvic pain during in second trimester, antepartum ([facility]) * CHLAMYDIA + GC AMPLIFIED PROBE(Performed 06/25/2024) Performed for Pelvic pain during in second trimester, antepartum ([facility]) * BLOOD TYPE VERIFICATION(Performed 06/25/2024) * URINE MICROSCOPIC ONLY REFLEX TO CULTURE(Performed 06/25/2024) Performed for Pelvic pain during in second trimester, antepartum ([facility]) * PROTEIN CREATININE RATIO URINE RANDOM PNL(Performed 06/25/2024) Performed for Elevated blood pressure affecting in second trimester, antepartum ([facility]) * COMPREHENSIVE METABOLIC PANEL(Performed 06/25/2024) Performed for Elevated blood pressure affecting in second trimester, antepartum ([facility]) * CBC W/O DIFFERENTIAL(Performed 06/25/2024) Performed for Elevated blood pressure affecting in second trimester, antepartum ([facility]) * URINALYSIS REFLEX MICROSCOPIC REFLEX CULTURE(Performed 06/25/2024) Performed for Pelvic pain during in second trimester, antepartum ([facility]) * CULTURE URINE(Performed 06/25/2024) Performed for Pelvic pain during in second trimester, antepartum ([facility]) Results * SONOGRAM - COMPLETE (07/12/2024 11:18 AM CDT) Anatomical Region Laterality Modality Other 07/12/2024 11:1 8 AM CDT Narrative 07/12/2024 12:03 PM CDT ? [facility] ?PHONE: ??FAX: Pat. Name: ?JORDY HOU Marilee. No: ?[id number] Study Date: ?? 07/12/2024 ??11:18am , Age: ? 2000, 24 Pregnancies: ?? 1 Height: ? 65 in Weight: ? 162 lb LMP: ?Unknown GA by Base: ?? 23w2d ?? TORI: 11/06/2024 GA by US: ? 22w5d ?? TORI: 11/10/2024 GA Selected: ??23w2d (From [facility]) TORI: ?11/06/2024 Referring MD: Mazin Carmona MD Manager Part: ??Neetu Newby, CPT4: ? 54437,17275 BMI: ?26.96 Hist/Ind: ? Cerclage Placement 06/26 ?Incomplete anatomy screen ?Low risk NIPT-female (per patient) ?cHTN MEASUREMENTS & AGE ? GROWTH EVALUATION Measurement ??GA ? Range ? Srce %for GA Ratios ----- ---- ------- BPD ??5.5 cm 22w5d (05e6j-00r1h) Hadl BPD 25% FL/BPD 0.75 (0.71 - 0.87) HC ??20.7 cm 22w6d (03q3i-91e9u) Hadl HC ??18% FL/AC ??0.22 (0.20 - 0.24) AC ??18.5 cm 23w2d (50s4b-53n5e) Hadl AC ??40% HC/AC ??1.12 (1.03 - 1.22) FL ?? 4.1 cm 23w3d (92h5g-84n8c) Hadl FL ??42% CI ? 0.74 (0.70 - 0.86) HL ?? 3.8 cm 23w4d (15r7n-36g1c) Richard HL ??55% GA for sonogram 22w5d (38q7y-25r4u) ?? Weight Estimate: based on (BPD,HC,AC,FL) Hadlock ?Weight: 578 gm (493-662gm) Hadloc ? : 1lbs, 4oz ? Normal: 597 gm (448-747gm) Hadloc ? Wt% ? 41% for 23w2d Cervix: ??Length: 2.2 cm ??Approach: transvaginal Heart Rate: 141 bpm Amniotic Fluid Index: 03.9cm (Deepest Pocket) PROCEDURE, TECHNIQUE Technique: transabdominal, transvaginal EVAL, PLACENTA Presentation: cephalic Umbilical Cord: 3 Vessels Placenta: posterior Heart Rate: 141 bpm Amniotic Fluid Volume: normal Anatomy!Normal!Abnormal!Suboptimal!Prev. Seen!Comments Cranium ?! ?! ?! ?! ? x ?! Mdl (CSP/Thal! ?! ?! ?! ? x ?! Ventricles ?? ! ?! ?! ?! ? x ?! Choroid Plexu! ?! ?! ?! ? x ?! Cerebellum ?? ! ?! ?! ?! ? x ?! Cisterna M. ??! ?! ?! ?! ? x ?! Orbits ? ! ?! ?! ?! ? x ?! Profile ?! ?! ?! ?! ? x ?! Nasal Bone ?? ! ?! ?! ?! ? x ?! Lip ?! ?! ?! ?! ? x ?! Spine ?! ?? x ??! ?! ?! ?!unremarkable ?transverse spine, ?previously seen ?sagittal Lungs ?! ?! ?! ?! ? x ?! 4 Chamber Hea! ?? x ??! ?! ?! ?! LVOT ? ! ?! ?! ?! ? x ?! RVOT ? ! ?? x ??! ?! ?! ?! 3 Vessel View! ?! ?! ?! ? x ?! 3 Vessel Trac! ?! ?! ?! ? x ?! Cross-over ?? ! ?! ?! ?! ? x ?! Ductal Arch ??! ?! ?! ?! ? x ?! Aortic Arch ??! ?! ?! ?! ? x ?! Caval View ?? ! ?! ?! ?! ? x ?! Situs ?! ?! ?! ?! ? x ?! Diaphragm ?! ?! ?! ?! ? x ?! Stomach ?! ?? x ??! ?! ?! ? x ?! Bowel ?! ?! ?! ?! ? x ?! Kidneys ?! ?? x ??! ?! ?! ? x ?! Bladder ?! ?? x ??! ?! ?! ? x ?! 3 Vessel Cord! ?? x ??! ?! ?! ? x ?! Cord In! ?? x ??! ?! ?! ?! Upper Extremi! ?! ?! ?! ? x ?! Hands ?! ?! ?! ?! ? x ?! Lower Extremi! ?! ?! ?! ? x ?! Feet ? ! ?! ?! ?! ? x ?! External Bhakti! ?! ?! ?! ? x ?! Placental Cor! ?! ?! ?! ? x ?! Maternal Adne! ?! ?! ?! ? x ?! CLINICAL SUMMARY A single fetus is seen in cephalic presentation. ??The measurements today are consistent with appropriate growth. ??The TORI is based on a prior outside ultrasound (confirmed). ??The amniotic fluid volume is within normal limits. ?? IMPRESSION: Single, live, intrauterine at 23w2d ?? size is within normal limits ?? Amniotic fluid volume: within normal limits ?? No major malformations were seen within the limitations of ultrasound ?? Stable transvaginal cervical length with cerclage in situ Cerclage appears intact RECOMMEND: Ultrasound as clinically indicated Thank you for allowing us the opportunity to care for your patient. ?? Lena Oden MD <Electronic Signature> ??07/12/2024 12:03pm R Jb Pelaez MD [facility] ORDERABLES * SONOGRAM - TRANSVAGINAL (07/02/2024 1:12 PM CDT) Only the most recent of2 resultswithin the time period is included. Anatomical Region Laterality Modality Other 07/02/2024 1:12 PM CDT Narrative 07/02/2024 2:13 PM CDT ? [facility] ?[facility] ?PHONE: ??FAX: Pat. Name: ?JORDY HOU No: ?[id number] Study Date: ?? 07/02/2024 ??1:12pm , Age: ? 2000, 24 Pregnancies: ?? 1 Height: ? 65 in Weight: ? 162 lb LMP: ?Unknown GA by Base: ?? 21w6d ?? TORI: 11/06/2024 GA Selected: ??21w6d (From [facility]) TORI: ?11/06/2024 Referring MD: Mazin Carmona MD Manager Part: ??Neetu Newby [facility] CPT4: ? 35104,51984 BMI: ?26.96 Hist/Ind: ? Cerclage Placement 06/26 ?Incomplete anatomy screen ?Low risk NIPT-female (per patient) ?cHTN Cervix: ??Length: 2.9 cm ??Approach: transvaginal Heart Rate: 136 bpm Amniotic Fluid Index: 04.7cm (Deepest Pocket) PROCEDURE, TECHNIQUE Technique: transabdominal, transvaginal EVAL, PLACENTA Presentation: breech Placenta: posterior Previa: no previa seen Heart Rate: 136 bpm Amniotic Fluid Volume: normal Anatomy!Normal!Abnormal!Suboptimal!Prev. Seen!Comments Cranium ?! ?! ?! ?! ? x ?! Mdl (CSP/Thal! ?! ?! ?! ? x ?! Ventricles ?? ! ?! ?! ?! ? x ?! Choroid Plexu! ?! ?! ?! ? x ?! Cerebellum ?? ! ?! ?! ?! ? x ?! Cisterna M. ??! ?! ?! ?! ? x ?! Orbits ? ! ?! ?! ?! ? x ?! Profile ?! ?! ?! ?! ? x ?! Nasal Bone ?? ! ?! ?! ?! ? x ?! Lip ?! ?! ?! ?! ? x ?! Spine ?! ?! ?! ? x ?! ?!unremarkable ?sagittal spine, ?suboptimal ?transverse spine Lungs ?! ?? x ??! ?! ?! ?! 4 Chamber Hea! ?! ?! ? x ?! ?!Limited pulmonary ?veins LVOT ? ! ?? x ??! ?! ?! ?! RVOT ? ! ?! ?! ? x ?! ?! 3 Vessel View! ?? x ??! ?! ?! ?! 3 Vessel Trac! ?? x ??! ?! ?! ?! Cross-over ?? ! ?! ?! ?! ? x ?! Ductal Arch ??! ?! ?! ?! ? x ?! Aortic Arch ??! ?! ?! ?! ? x ?! Caval View ?? ! ?! ?! ?! ? x ?! Situs ?! ?! ?! ?! ? x ?! Diaphragm ?! ?? x ??! ?! ?! ?! Stomach ?! ?! ?! ?! ? x ?! Bowel ?! ?? x ??! ?! ?! ? x ?! Kidneys ?! ?? x ??! ?! ?! ? x ?! Bladder ?! ?? x ??! ?! ?! ? x ?! 3 Vessel Cord! ?! ?! ?! ? x ?! Cord In! ?! ?! ? x ?! ?! Upper Extremi! ?! ?! ?! ? x ?! Hands ?! ?? x ??! ?! ?! ?!unremarkable ?left, right ?previously seen Lower Extremi! ?! ?! ?! ? x ?! Feet ? ! ?? x ??! ?! ?! ?!unremarkable ?left, right ?previously seen External Bhakti! ?! ?! ?! ? x ?! Placental Cor! ?? x ??! ?! ?! ?! Maternal Adne! ?! ?! ?! ? x ?! CLINICAL SUMMARY A single fetus is seen in breech presentation. ??The amniotic fluid volume is within normal limits. ?? IMPRESSION: Single , live, intrauterine at 21w6d Amniotic fluid: within normal limits ?? Reassuring transvaginal cervical length ?? Cerclage appears intact RECOMMEND: Ultrasound in 10 days for cervical length, gropwth, and complete anatomy survey ?? Thanks for allowing us the opportunity to care for your patient. ?? Lena Oden MD <Electronic Signature> ??07/02/2024 02:14pm Lizzie Michaels MD [facility] ORDERABLES * CARDIAC RHYTHM STRIP ORDER (06/27/2024 4:47 PM CDT) Narrative 06/27/2024 4:47 PM CDT Ordered by an unspecified provider. Scanned Document CARD[facility] ORD ERABLES * Neuraxial Block (06/26/2024 12:50 PM CDT) Narrative Luli Pan MD - 06/26/2024 12:50 PM CDT Luli Pan MD ? 06/26/2024 12:54 PM Neuraxial Block Note ?? Pre-Procedure: ?? Procedure Name: ??Neuraxial Block Patient Location: ??OR Indications: ??surgical anesthesia Pre-Anesthetic Checklist: ??Patient identified, IV Checked, Risks and benefits discussed, Surgical consent verified, Monitors and equipment, Site examined, Pre-op evaluation done, Time-out performed, Informed consent obtained, Questions answered/anesthesia questions answered and Allergies reviewed Anticoagulation/ Anti-thrombosis status confirmed? ??Yes Supplemental O2: ??nasal cannula Monitors: ??BP, continuous pluse ox, EKG and End tidal CO2 Patient Condition: ??awake Patient Sedated? ??No Procedure: ?? Block Type: ??Spinal Prep: ??Duraprep Sterile Field: ??mask, cap/hat, sterile established and sterile gloves Approach: ??midline Skin was localized? ??Yes Skin localized with: lidocaine (XYLOCAINE) 1 % injection - Infiltration 1 mL - 06/26/2024 12:51:00 PM Spinal Block: ?? Needle Type: ??spinal needle Needle Gauge: ??25 Needle Length: ??90 mm Placement Site: ??L4-5 Number of Attempts: ??1 CSF: ??free flow, aspiration before injection Local anesthetics used? ??Yes Spinal local anesthetics/Additives: ??bupivacaine 0.75 % in dextrose (SENSORCAINE) injection - Intraspinal 10 mg - 06/26/2024 12:52:00 PM Degree of difficulty: ??none Procedure Tolerance: ??tolerated well Sensory Level: ??T10 Motor Blockade: ??Yes Position post procedure: ??supine Vital Signs: ??Vital signs monitored and stable throughout. ??See anesthesia record for details., Vital signs moniitored and stable throughout. ??See nursing vitals flowsheet for details. Staff: ?? Anesthesia Provider: ??Luli Pan MD ?? - ?? performed the procedure Luli Pan MD [facility]HES[facility] ORDERABLES * RPR W REFLEX TO TITER (MONITOR) (06/25/2024 3:30 PM CDT) RPR Monitor Nonreactive Nonreactive 06/26/2024 6:18 AM CDT [facility] Blood BLOOD SPECIMEN / Unknown Venipuncture / Unknown 06/25/2024 3:30 PM CDT 06/25/2024 3:36 PM CDT Yohannes Ford DO LAB - CHEMISTRY ROLF JOSUE [facility] [address] [place] [address] * TYPE + SCREEN PANEL (06/25/2024 3:30 PM CDT) ABO Rh O POS 06/25/2024 4:14 PM CDT [facility] Comment:No history; collect retype. Antibody Screen NEG 4:14 PM CDT [facility] Blood Bank BLOOD SPECIMEN / Unknown Venipuncture / Unknown 06/25/2024 3:30 PM CDT 06/25/2024 3:36 PM CDT Yohannes Ford DO LAB - BLOOD BANK ORD ERABLES Performing Organization Address City/[facility]/ZIP Co de Phone Number [facility] [address] [place] [address], [facility] [phone] * CHLAMYDIA + GC AMPLIFIED PROBE (06/25/2024 12:17 PM CDT) Pathologist [facility] Chlamydia Amplified Probe Negative Negative 06/25/2024 10:09 PM CDT [facility] GC Amplified Probe Negative Negative 06/25/2024 10:09 PM CDT [facility] Microbiology ENTIRE ENDOCERVIX / Unknown Collection / Unknown 06/25/2024 12:17 PM CDT 06/25/2024 12:51 PM CDT Narrative [facility] - 06/25/2024 10:09 PM CDT Results based on detection/no detection of ribosomal RNA by amplified method. Julieta Eldridge APRN-PRE BILLING SPECIALIST LAB - MICROBI OLOGY ORDERABLES [facility] [address] [place] [address], [facility] [phone] * TRICHOMONAS RAPID TEST (06/25/2024 12:17 PM CDT) Trichomonas Rapid Test Negative Negative 06/25/2024 1:10 PM CDT [facility] Microbiology VAGINAL SWAB / Unknown Collection / Unknown 06/25/2024 12:17 PM CDT 06/25/2024 12:51 PM CDT Julieta Eldridge APRN-PRE BILLING SPECIALIST LAB - MICROBI OLOGY ORDERABLES [facility] [address] [place] [address] * BLOOD TYPE VERIFICATION (06/25/2024 11:58 AM CDT) ABO Rh O POS 06/25/2024 4:0 3 PM CDT [facility] Blood Bank BLOOD SPECIMEN / Unknown Lab Venipuncture / Unknown 06/25/2024 11:58 AM CDT 06/25/2024 3:43 PM CDT Yohannes Ford DO LAB - BLOOD BANK ORD ERABLES Performing Organization Address City/[facility]/ZIP Co de Phone Number [facility] [address] [place] [address] * (ABNORMAL) URINE MICROSCOPIC ONLY REFLEX TO CULTURE (06/25/2024 11:57 AM CDT) Reflex Status Culture to follow 06/25/2024 12:12 PM CDT [facility] RBC UA None Seen 0 - 5 # /hpf 06/25/2024 12:12 PM CDT [facility] WBC UA 6-10(A) 0 - 5 # /hpf 06/25/2024 12:12 PM CDT [facility] Bacteria UA 2+(A) None Seen 06/25/2024 12:12 PM CDT [facility] Squamous Epithelial Cells 3-5 0 - 5 /hpf 06/25/2024 12:12 PM CDT [facility] Mucus UA 1+ /LPF 06/25/2024 12:12 PM CDT [facility] Urine URINE SPECIMEN OBTAINED BY CLEAN CATCH PROCEDURE / Unknown Collection / Unknown 06/25/2024 11:57 AM CDT 06/25/2024 12:03 PM CDT Narrative [facility] - 06/25/2024 12:12 PM CDT Julieta N Chente MARKETING AGENT-PRE BILLING SPECIALIST LAB - URINALY SIS ORDERABLES Performing Organization Address City/[facility]/ZIP Co de Phone Number [facility] [address] [place] [address] * (ABNORMAL) URINALYSIS REFLEX MICROSCOPIC REFLEX CULTURE (06/25/2024 11:57 AM CDT) Color UA Yellow Straw, Yellow 06/25/2024 12:10 PM CDT [facility] Clarity UA Cloudy(A) Clear 06/25/2024 12:10 PM CDT [facility] Glucose UA Negative Negative 06/25/2024 12:10 PM CDT [facility] Bilirubin UA Negative Negative 06/25/2024 12:10 PM CDT [facility] Ketone UA Negative Negative 06/25/2024 12:10 PM CDT [facility] Specific [place] UA 1.013 1.005 - 1.030 06/25/2024 12:10 PM CDT [facility] Blood UA Negative Negative 06/25/2024 12:10 PM CDT [facility] pH UA 8.0 5.0 - 8.0 pH 06/25/2024 12:10 PM CDT [facility] Protein UA Negative Negative 06/25/2024 12:10 PM CDT [facility] Urobilinogen UA Negative Negative mg/dL 06/25/2024 12:10 PM CDT [facility] Nitrite UA Negative Negative 06/25/2024 12:10 PM CDT [facility] Leukocyte UA 2+(A) Negative 06/25/2024 12:10 PM CDT [facility] Urine Microscopy Urine microscopy to follow 06/25/2024 12:10 PM CDT [facility] Reflex Status Culture to follow 06/25/2024 12:10 PM CDT [facility] Urine URINE SPECIMEN OBTAINED BY CLEAN CATCH PROCEDURE / Unknown Collection / Unknown 06/25/2024 11:57 AM CDT 06/25/2024 12:03 PM CDT Narrative [facility] - 06/25/2024 12:10 PM CDT Julieta Eldridge MARKETING AGENT-PRE BILLING SPECIALIST LAB - URINALY SIS ORDERABLES [facility] [address] [place] [address] * CULTURE URINE (06/25/2024 11:57 AM CDT) Culture Urine 10,000-50,000 CFU/mL urogenital daxa CONCEPCION 06/27/2024 11:32 AM CDT [facility] Urine URINE SPECIMEN OBTAINED BY CLEAN CATCH PROCEDURE / Unknown Collection / Unknown 06/25/2024 11:57 AM CDT 06/25/2024 12:03 PM CDT Julieta Eldridge MARKETING AGENT-PRE BILLING SPECIALIST LAB - MICROBI OLOGY ORDERABLES [facility] [address] [phone] * (ABNORMAL) CBC W/O DIFFERENTIAL (06/25/2024 11:57 AM CDT) WBC 11.0(H) 4.0 - 10.7 x10E9/L 06/25/2024 12:11 PM CDT [facility] RBC Count 4.07 3.90 - 5.20 x10E12/L 06/25/2024 12:11 PM CDT [facility] Hemoglobin 11.8(L) 11.9 - 15.8 g/dL 06/25/2024 12:11 PM CDT [facility] Hematocrit 35.6 34.8 - 46.1 % 06/25/2024 12:11 PM CDT [facility] MCV 87.5 80.0 - 98.0 fL 06/25/2024 12:11 PM CDT [facility] MCH 29.0 26.7 - 33.6 pg 06/25/2024 12:11 PM CDT [facility] MCHC 33.1 31.7 - 36.3 g/dL 06/25/2024 12:11 PM CDT [facility] RDW-CV 13.1 11.3 - 14.8 % 06/25/2024 12:11 PM CDT [facility] Platelet Count 250 150 - 420 x10E9/L 06/25/2024 12:11 PM CDT [facility] MPV 10.7 7.8 - 11.4 fL 06/25/2024 12:11 PM CDT [facility] Blood BLOOD SPECIMEN / Unknown Venipuncture / Unknown 06/25/2024 11:57 AM CDT 06/25/2024 12:02 PM CDT Yohannes Liliana HARDWICK LAB - HEMATOLOGY ORD ERABLES [facility] [address] [place] [phone] * (ABNORMAL) COMPREHENSIVE METABOLIC PANEL (06/25/2024 11:57 AM CDT) Pathologist [facility] Glucose 87 70 - 99 mg/dL 06/25/2024 12:26 PM CDT [facility] Sodium 139 136 - 145 mmol/L 06/25/2024 12:26 PM CDT [facility] Potassium 3.7 3.5 - 5.1 mmol/L 06/25/2024 12:26 PM CDT [facility] Chloride 108(H) 98 - 107 mmol/L 06/25/2024 12:26 PM CDT [facility] CO2 23 22 - 29 mmol/L 06/25/2024 12:26 PM CDT [facility] Calcium 9.4 8.4 - 10.4 mg/dL 06/25/2024 12:26 PM CDT [facility] Anion Gap 8 6 - 16 mmol/L 06/25/2024 12:26 PM CDT [facility] BUN 7 5.3 - 18.7 mg/dL 06/25/2024 12:26 PM CDT [facility] Creatinine 0.62 0.57 - 1.11 mg/dL 06/25/2024 12:26 PM CDT [facility] Alkaline Phosphatase 59 40 - 150 U/L 06/25/2024 12:26 PM CDT [facility] ALT 15 0 - 55 U/L 06/25/2024 12:26 PM CDT [facility] AST 13 5 - 34 U/L 06/25/2024 12:26 PM CDT [facility] Protein Total 7.1 6.4 - 8.3 gm/dL 06/25/2024 12:26 PM CDT [facility] Albumin 3.1(L) 3.4 - 5.0 gm/dL 06/25/2024 12:26 PM CDT [facility] Bilirubin Total 0.3 0.2 - 1.2 mg/dL 06/25/2024 12:26 PM CDT [facility] eGFR by CKD-EPI >90 >=90 mL/min/1.7 3 m2 06/25/2024 12:26 PM CDT [facility] Blood BLOOD SPECIMEN / Unknown Venipuncture / Unknown 06/25/2024 11:57 AM CDT 06/25/2024 12:02 PM CDT Yohannes Ford DO LAB - CHEMISTRY ORDE RABLA NENA [facility] [address] [place] [address] * PROTEIN CREATININE RATIO URINE RANDOM PNL (06/25/2024 11:57 AM CDT) Protein Urine <6.8 <11.9 mg/dL 06/25/2024 12:32 PM CDT [facility] [facility] Creatinine Urine 65.02 mg/dL 06/25/2024 12:32 PM CDT [facility] Protein/Creatin ine Ratio Urine 06/25/2024 12:32 PM CDT [facility] Comment:Unable to calculate due to limited levels of measurable protein. Urine URINE SPECIMEN OBTAINED BY CLEAN CATCH PROCEDURE / Unknown Collection / Unknown 06/25/2024 11:57 AM CDT 06/25/2024 12:03 PM CDT Yohannes Ford DO LAB - URINE CHEMISTR Y ORDERABLES [facility] [address] [place], [place] [id number] Care Teams Section Laborer Relationship Specialty Start Date End Date Kishor Giang MD [address] [id number] PCP - General Pediatrics 01/07/14
--- OUTSIDE RECORDS SUMMARY | 2024-10-14 08:42 | XMS_ITS | Data Portability ---
Author Organization [facility] [place] Address [address] [place] [address] Assessment No assessment recorded. Plan of Treatment Reminders Order Date Submit Date Provider Last Modified By Organization Details Last Modified Time Details Appointments INDUCTION 2024 12:01A Macy CRAWLEY MD Not available Not available Not available Lab CMP, serum or plasma 2024 025 [facility] (Lab), [address], [place], [address], 10/10/2024 06:09:22 uric acid, serum or plasma 2024 025 [facility] (Lab), [address], [place], [address], 10/10/2024 06:09:22 CBC w/ auto diff 2024 025 [facility] (Lab), [address], [place], [address], 10/10/2024 06:09:22 protein:c reatinine ratio, urine 2024 025 [facility] (Lab), [address], [place], [address], 10/09/2024 16:19:11 Referral None recorded. Procedures None recorded. Surgeries None recorded. Imaging US, obstetric , follow-up 2023 024 [email or web address] [place], [address], [address], [place], [address], 09/10/2024 23:12:03 non-stres s test 2024 025 [place], [address], [place], [address], 10/11/2024 10:33:05 US, obstetric , follow-up 2024 025 [address], [address], [place], [address], 10/11/2024 18:12:07 US, obstetric , biophysic al profile + non-stres s test 2024 025 [email or web address] [place], [address], [place], [address], 10/11/2024 18:12:07 Medication Orders None recorded. Patient TargetsNo targets recorded. Patient InstructionsNo instructions recorded. Reason for Referral None Reported. Results Created Date Observation Date Name Description Value Unit Range Abnormal Flag Note LastModifiedBy Organization Detail LastModifiedTime 08/14/2008/14/2024 HEMAT OCRIT (HCT) HCT 35.7 % (based on docume nted legal sex) 34.0-4 5.0 Not Available [facility] (Lab) [address] [place], [address], 08/15/2024 12:38:09 08/14/20 24 08/14/2024 HEMOG LOBIN (HGB) HGB 11.4 g/dL (based on docume nted legal sex) 11.6-1 5.4 low Not Available [facility] (Lab) [address] [place], [address], 08/15/2024 12:38:10 08/14/20 24 08/14/2024 GTT - GESTA ANAT Familia ASHF[facility] N, ACOG OB glucose, 1 hour screen 155 mg/dL 70-135 high Not Available [facility] (Lab) [address], [place], [address], 08/15/2024 12:38:10 08/14/20 24 08/14/2024 HIV 1/2 ANTIG EN/AN TIBOD Y, REFLE X CONFI RMATI ON HIV antigen/anti body Nonrea ctive nonrea ctive HIV-1 antig en and HIV-1 /HIV- 2 antib odies were not detec nata. No labor atory evide nce of HIV infec tion. Not Available [facility] (Lab) [address], [place], [address], 08/15/2024 12:38:10 08/14/20 24 08/14/2024 RPR SCREE N, REFLE X TITER /CONF IRMAT ION RPR screen Nonrea ctive nonrea ctive Not Available [facility] (Lab) [address], [place], [address], 08/15/2024 12:38:11 08/27/20 24 08/27/2024 GTT - GESTA ANAT L, 3 HOUR, ACOG glucose, fasting acog 90 mg/dL 70-94 Not Available [facility] (Lab) [address], [place], [address], 08/28/2024 04:04:04 08/27/20 24 08/27/2024 GTT - GESTA ANAT L, 3 HOUR, ACOG glucose, 1 hour acog 200 mg/dL 70-179 high Not Available [facility] system (Lab) [address], [place], [address], 08/28/2024 04:04:04 08/27/20 24 08/27/2024 GTT - GESTA ANAT L, 3 HOUR, ACOG glucose, 2 hour acog 178 mg/dL 70-154 high Not Available [facility] system (Lab) [address], [place], [address], 08/28/2024 04:04:04 08/27/20 24 08/27/2024 GTT - GESTA ANAT L, 3 HOUR, ACOG glucose, 3 hour acog 130 mg/dL 70-139 Not Available [facility] system (Lab) [address], [place], [address], 08/28/2024 04:04:04 10/09/19 25 10/09/2024 CBC W/DIF F WBC 12.4 10'3/ uL 3.5-10 .5 high Not Available [facility] (Lab) [address], [place], [address], 10/10/2024 06:09:22 10/09/19 25 10/09/2024 CBC W/DIF F RBC 4.44 10'6/ uL (based on docume nted legal sex) 3.80-5 .20 Not Available [facility] (Lab) [address], [place], [address], 10/10/2024 06:09:22 10/09/19 25 10/09/2024 CBC W/DIF F HGB 11.7 g/dL (based on docume nted legal sex) 11.6-1 5.4 Not Available [facility] (Lab) [address], [place], [address], 10/10/2024 06:09:22 10/09/19 25 10/09/2024 CBC W/DIF F HCT 37.8 % (based on docume nted legal sex) 34.0-4 5.0 Not Available [facility] (Lab) [address], [place], [address], 10/10/2024 06:09:22 10/09/19 25 10/09/2024 CBC W/DIF F MCV 85.1 fL 80.0-9 9.0 Not Available [facility] (Lab) [address], [place], [address], 10/10/2024 06:09:22 10/09/19 25 10/09/2024 CBC W/DIF F MCH 26.4 pg 27.0-3 4.0 low Not Available [facility] (Lab) [address], [place], [address], 10/10/2024 06:09:22 10/09/19 25 10/09/2024 CBC W/DIF F MCHC 31.0 g/dL 32.0-3 5.5 low Not Available [facility] (Lab) [address], [place], [address], 10/10/2024 06:09:22 10/09/19 25 10/09/2024 CBC W/DIF F RDW 13.4 % 11.0-1 5.0 Not Available [facility] (Lab) [address], [place], [address], 10/10/2024 06:09:22 10/09/19 25 10/09/2024 CBC W/DIF F plt 308 10'3/ uL 150-40 0 Not Available [facility] (Lab) [address], [place], [address], 10/10/2024 06:09:22 10/09/19 25 10/09/2024 CBC W/DIF F MPV 12.4 fL 8.8-12 .1 high Not Available [facility] (Lab) [address], [place], [address], 10/10/2024 06:09:22 10/09/19 25 10/09/2024 CBC W/DIF F neutrophils 66.6 % 34.0-7 3.0 Not Available [facility] (Lab) [address], [place], [address], 10/10/2024 06:09:22 10/09/19 25 10/09/2024 CBC W/DIF F lymphocytes 23.4 % 15.0-5 0.0 Not Available [facility] (Lab) [address] [place], [address], 10/10/2024 06:09:22 10/09/19 25 10/09/2024 CBC W/DIF F monocytes 6.7 % 1.0-15 .0 Not Available [facility] (Lab) [address], [place], [address], 10/10/2024 06:09:22 10/09/19 25 10/09/2024 CBC W/DIF F eosinophils 2.3 % 0.0-8. 0 Not Available [facility] (Lab) [address], [place], [address], 10/10/2024 06:09:22 10/09/1910/09/2024 CBC W/DIF F basophils 0.5 % 0.0-2. 0 Not Available [facility] (Lab) [address], [place], [address], 10/10/2024 06:09:22 10/09/1910/09/2024 CBC W/DIF F immature granulocytes 0.5 % no define d refere nce range Immat ure Granu locyt es (IG) repre sents autom ated enume ratio n of Metam yeloc ytes, Myelo cytes and Promy elocy mayra when IG is < 5%. Blast s are not inclu ded in IG and repor nata separ ately if prese nt. Not Available [facility] (Lab) [address], [place], [address], 10/10/2024 06:09:22 10/09/1910/09/2024 CBC W/DIF F absolute neutrophils 8.3 10'3/ uL 1.5-8. 0 high Not Available [facility] (Lab) [address], [place], [address], 10/10/2024 06:09:22 10/09/19 25 10/09/2024 CBC W/DIF F absolute lymphocytes 2.9 10'3/ uL 1.0-4. 0 Not Available [facility] (Lab) [address], [place], [address], 10/10/2024 06:09:22 10/09/1910/09/2024 CBC W/DIF F absolute monocytes 0.8 10'3/ uL 0.2-1. 0 Not Available [facility] (Lab) [address], [place], [address], 10/10/2024 06:09:22 10/09/1910/09/2024 CBC W/DIF F absolute eosinophils 0.3 10'3/ uL 0.0-0. 6 Not Available [facility] (Lab) [address], [place], [address], 10/10/2024 06:09:22 10/09/1910/09/2024 CBC W/DIF F absolute basophils 0.1 10'3/ uL 0.0-0. 3 Not Available [facility] (Lab) [address], [place], [address], 10/10/2024 06:09:22 10/09/1910/09/2024 CBC W/DIF F absolute immature granulocytes 0.1 10'3/ uL 0.00-0 .10 Refer ence range s for nonbi nary/ inter sex or unspe cifie d gende r patie nts have not been estab lishe d. [facility]as e [facility] for range s estab lishe d for cisge nder patie nts and evalu ate in the clini kalyani dorene xt of the indiv idual patie nt: [email or web address] :[email or web address] [email or web address] nm.or g/Gen derX Not Available [facility] (Lab) [address], [place], [address], 10/10/2024 06:09:22 10/09/1910/09/2024 URIC ACID uric acid 5.9 mg/dL 2.3-6. 6 Not Available [facility] (Lab) [address], [place], [address], 10/10/2024 06:09:22 10/09/1910/09/2024 CMP(C OMPRE HENSI VE METAB OLIC PANEL ) sodium 136 mmol/ L 133-14 6 Not Available [facility] (Lab) [address], [place], [address], 10/10/2024 06:09:22 10/09/19 25 10/09/2024 CMP(C OMPRE HENSI VE METAB OLIC PANEL ) potassium 4.1 mmol/ L 3.5-5. 1 Not Available [facility] (Lab) [address], [place], [address], 10/10/2024 06:09:22 10/09/19 25 10/09/2024 CMP(C OMPRE HENSI VE METAB OLIC PANEL ) chloride 100 mmol/ L 98-107 Not Available [facility] (Lab) [address], [place], [address], 10/10/2024 06:09:22 10/09/19 25 10/09/2024 CMP(C OMPRE HENSI VE METAB OLIC PANEL ) carbon dioxide 27 mmol/ L 21-31 Not Available [facility] (Lab) [address], [place], [address], 10/10/2024 06:09:22 10/09/19 25 10/09/2024 CMP(C OMPRE HENSI VE METAB OLIC PANEL ) anion gap 9 mmol/ L 4-13 Not Available [facility] (Lab) [address] [place], [address], 10/10/2024 06:09:22 10/09/19 25 10/09/2024 CMP(C OMPRE HENSI VE METAB OLIC PANEL ) blood urea nitrogen 9 mg/dL 7-25 Not Available [facility] system (Lab) [address], [place], [address], 10/10/2024 06:09:22 10/09/19 25 10/09/2024 CMP(C OMPRE HENSI VE METAB OLIC PANEL ) creatinine 0.74 mg/dL 0.60-1 .30 Not Available [facility] (Lab) [address], [place], [address], 10/10/2024 06:09:22 10/09/19 25 10/09/2024 CMP(C OMPRE HENSI VE METAB OLIC PANEL ) egfrcr (CKD-epi 2020) >90 mL/mi n/1.7 3_m2 >=60 Not Available [facility] (Lab) [address], [place], [address], 10/10/2024 06:09:22 10/09/19 25 10/09/2024 CMP(C OMPRE HENSI VE METAB OLIC PANEL ) calcium 9.7 mg/dL 8.3-10 .5 Not Available [facility] (Lab) [address], [place], [address], 10/10/2024 06:09:22 10/09/19 25 10/09/2024 CMP(C OMPRE HENSI VE METAB OLIC PANEL ) glucose 58 mg/dL 70-100 low Not Available [facility] (Lab) [address], [place], [address], 10/10/2024 06:09:22 10/09/19 25 10/09/2024 CMP(C OMPRE HENSI VE METAB OLIC PANEL ) protein, total 7.3 g/dL 6.4-8. 3 Not Available [facility] (Lab) [address], [place], [address], 10/10/2024 06:09:22 10/09/19 25 10/09/2024 CMP(C OMPRE HENSI VE METAB OLIC PANEL ) albumin 3.6 g/dL 3.5-5. 0 Not Available [facility] (Lab) [address], [place], [address], 10/10/2024 06:09:22 10/09/19 25 10/09/2024 CMP(C OMPRE HENSI VE METAB OLIC PANEL ) ALT 15 units /L 9-43 Not Available [facility] (Lab) [address], [place], [address], 10/10/2024 06:09:22 10/09/19 25 10/09/2024 CMP(C OMPRE HENSI VE METAB OLIC PANEL ) alkaline phosphatase 145 units /L 34-104 high Not Available [facility] (Lab) [address], [place], [address], 10/10/2024 06:09:22 10/09/19 25 10/09/2024 CMP(C OMPRE HENSI VE METAB OLIC PANEL ) AST 16 units /L 13-39 Not Available [facility] (Lab) [address], [place], [address], 10/10/2024 06:09:22 10/09/19 25 10/09/2024 CMP(C OMPRE HENSI VE METAB OLIC PANEL ) bilirubin, total 0.5 mg/dL 0.2-1. 2 Not Available [facility] (Lab) [address], [place], [address], 10/10/2024 06:09:22 09/09/20 24 09/09/2024 US, obste tric, follo w-up No observ ation record ed. [facility] [address], [place], [address], 09/09/2024 13:05:10 09/09/20 24 09/09/2024 US, obste tric, follo w-up No observ ation record ed. [facility] [address], [place], [address], 09/13/2024 17:32:13 10/11/1910/11/2024 US, obste tric, follo w-up No observ ation record ed. [facility] [address], [place], [address], 10/11/2024 17:52:08 10/11/1912 1010/11/2024 US, obste tric, bioph ysica l profi le + non-s tress test No observ ation record ed. [email or web address] [place] [address], [place], [address], 10/11/2024 17:52:20 10/11/19 25 10/11/2024 US, obste tric, follo w-up No observ ation record ed. [email or web address] [address], [place], [address], 10/12/2024 21:35:31 10/11/19 25 10/11/2024 non-s tress test No observ ation record ed. [email or web address] [place] [address], [place], [address], 10/11/2024 10:17:14 Result Notes None recorded. Problems Name Problem SNOMED Code Status Onset Date Resolution Date Notes Provider Name and Address Organization Details Recorded Time 47306587 Active [address] [facility] 4 16:37:38 Short cervical length in 196058962 Active 2023 1.43 - 2.30cm CL. Starting 200mg vag progester one @ [facility]. [facility]cl[facility] 06/26/24 @ [facility] Per [facility] Cervical lenght us every 1-2wks until 24wks CL at [facility] on 07/02/24 Meg valiente [facility] 4 14:00:25 Gestation al diabetes mellitus 45060046 Active BS QID, serial growth Danielle valiente [facility] 4 17:50:29 Gestation al diabetes mellitus 33850600 Active BS QID, serial growth Danielle valiente [facility] 4 17:50:29 -induced hypertens ion 45260380 Active gestation al hypertens ion, testing, weekly labs, delivery at 37 weeks CANDY CRAWLEY MD [address], [place], [address], [place] [facility] 22:09:21 Problem Notes None recorded. Procedures Surgical History Date Name Laterality Status Provider Name and Address Organization Details Recorded Time Vaginal Packing Removal completed CANDY CRAWLEY MD [address], [place], [address], [facility] 10/09/2024 22:17:51 Date of Last Pap Smear completed Lizzy Marin [facility] 06/22/2023 16:54:18 Imaging Results Imaging Date Name Status LastModified by Organiz ation Details LastModified Time 09/09/2024 US, obstetric, follow-up completed [facility] [address], [place], [address], 09/09/2024 13:05:10 09/09/2024 US, obstetric, follow-up completed [email or web address] [facility] [address], [place], [address], 09/13/2024 17:32:13 10/11/2024 US, obstetric, follow-up completed [facility] [address], [place], [address], 10/11/2024 17:52:08 10/11/2024 US, obstetric, biophysical profile + non-stress test completed [facility] [address], [place], [address], 10/11/2024 17:52:20 10/11/2024 US, obstetric, follow-up active [email or web address] [facility] [address], [place], [address], 10/12/2024 21:35:31 10/11/2024 non-stress test completed [email or web address] [place] [address], [place], [address], 10/11/2024 10:17:14 Procedure Notes None recorded. Medical Equipment None Reported. Allergies No known drug allergies Medications Name Sig Start Date Stop Date Status Note LastModified by Organization Details LastModified Time ondansetron 8 mg disintegrat ing tablet Place 1 tablet twice a day by transling ual route as needed. active Not Available Not Available No t Available indomethaci n 25 mg capsule TAKE 1 CAPSULE BY MOUTH EVERY 6 HOURS active Not Available Not Available No t Available progesteron e micronized 200 mg capsule TAKE 1 CAPSULE BY MOUTH AT BEDTIME active Not Available Not Available No t Available metoclopram garth 10 mg tablet TAKE 1 TABLET BY MOUTH FOUR TIMES DAILY active Not Available Not Available No t Available amoxicillin 875 mg-potassiu m clavulanate 125 mg tablet TAKE 1 TABLET BY MOUTH TWICE DAILY FOR 7 DAYS 03/27 completed Not Available Not Available Not Available nitrofurant oin monohydrate /macrocryst als 100 mg capsule TAKE 1 CAPSULE BY MOUTH TWICE DAILY WITH THE MORNING AND EVENING MEAL FOR 7 DAYS FOR UTI 07/17 completed Not Available Not Available Not Available active Not Available Not Avai lable Not Available OneTouch Verio test strips active Not Available Not Available Not Available OneTouch Delica Plus Lancet 33 gauge active Not Available Not Available Not Available Vitals Date Recorded Body height Body mass index (BMI) Body weight Systolic blood pressure Diastolic blood pressure Provider Name and Address Organization Details Last Updated DateTime 09/09/2024 152.4 cm 35 kg/m2 19001.03 g 140 mm[Hg] 93 mm[Hg] [facility] 4 12:14:37 Date Recorded Body height Body mass index (BMI) Body weight Systolic blood pressure Diastolic blood pressure Provider Name and Address Organization Details Last Updated DateTime 09/24/2024 152.4 cm 35.3 kg/m2 06442.22 g 137 mm[Hg] 86 mm[Hg] [facility] 5 15:39:14 Date Recorded Body height Body mass index (BMI) Body weight Systolic blood pressure Diastolic blood pressure Provider Name and Address Organization Details Last Updated DateTime 10/09/2024 152.4 cm 35.9 kg/m2 09899 g 141 mm[Hg] 91 mm[Hg] [facility] 14:37:01 Date Recorded Body height Body mass index (BMI) Body weight Systolic blood pressure Diastolic blood pressure Provider Name and Address Organization Details Last Updated DateTime 10/11/2024 152.4 cm 36.3 kg/m2 99252.18 g 141 mm[Hg] 82 mm[Hg] [facility] 5 10:16:46 Social History Question Answer Notes LastModified by Organizat ion Details LastModified Time In The 14 Days Before Symptom Onset, Have You Had Close Contact With A Laboratory-confirmed COVID-19 While That Case Was Ill? No [email or web address] Information not available 06/21/2024 In The 14 Days Before Symptom Onset, Have You Had Close Contact With A Person Who Is Under Investigation For COVID-19 While That Person Was Ill? No [email or web address] Information not available 06/21/2024 Have You Been To An Area Known To Be High Risk For COVID-19? No [email or web address] Information not available 06/21/2024 Sex: Unknown Functional Status None recorded. Mental Status None recorded. Family History Relationship Description Onset Age of this Age Resolved Age Notes LastModified by Organization Details LastModified Time Father No current problems or disability [email or web address] Not available 10/17 11:52:17 Mother No current problems or disability [email or web address] Not available 10/17 11:52:17 Medical History Condition Response Allergies (Food, seasonal, environmental ) N Other N Breast Cancer N Drug/Latex Allergies/Reactions N Blood Transfusion N Dermatologic Disorders N Lung Disease N Defects or Inherited Disease N Breast Problem N Gestational Diabetes N Hematologic disorders N Anesthesia Complications N History of STI N Deep Vein Thrombosis N Polycystic ovary syndrome N Anxiety Disorder N Autoimmune disease N Arthritis N Infertility N Polyps N Acid Reflux (GERD) N History of abnormal pap N Cancer N Stroke N Varicosities N Neurologic/Epilepsy N Endometriosis N High Cholesterol N Headaches N Fibromyalgia N Kidney Disease N Heart Problems N Kidney or Bladder Problems N Thyroid Problems N GI Problems N Eating Disorder N Anemia N Art (IVF or FET) N Psychiatric Illness N Ovarian Cancer N Diabetes N Pulmonary (TB, Asthma) N Hepatitis/Liver Disease N No Past Medical History N Eczema N Urinary Tract Infection N Abuse/Domestic Violence N Asthma N Trauma/Violence N Depression/ depression N Heart Disease N Pre-Eclampsia N Hypertension N Osteoporosis N Thrombophilias N Gynecological History Statement/Question Response Flow Heavy Date of LMP 12/18/2023 On BCP's at Conception? N STIs/STDs N HPV Vaccine Y Current Control Method None Sexually Active? Y Menses Monthly N Date of Last Pap Smear 09/18/2020 Sexual Problems? 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 N97.9 - Differenti al diagnosis of cause of infertilit y includes: PCOS vs endometrio sis vs male factor- We discussed the potential causes of infertilit y and rationale behind testing.- We reviewed that given her BMI >25 her natural fertility could be improved by even just a 5% wt loss.- The patient is asked to complete the following diagnostic work up to include:-- TSH, A1C, Vitamin D, PRL, LH, 17OHP, AMH, and labs including varicella status-- Transvagin al ultrasound with SIS for endometria l cavity assessment - The patient was asked to have her collect a semen analysis; informatio n given on locations to complete- Discussed the fertile time of the cycle and options for tracking ovulation, including ovulation predictor kits-- Discussed ovulation induction would be considered only after behavioral interventi ons were implemente d and after partner completes semen analysis.- Following the return of these test results she is asked to return to the office for further discussion of reproducti ve planning and treatment options [id number] Imelda Escalante [place] [address] [address] 08/03/2023 15:26:44 08/03/2023 16:11:02 Irregular periods 17358169 N92.6 N97.9 [id number] CANDY CRAWLEY MD [place] [address],[place] [address] 10/17/2023 11:41:51 10/19/2023 13:13:25 Primary infertility 102575427 N97.9 - Differenti al diagnosis of cause of infertilit y includes: PCOS vs endometrio sis vs male factor- We discussed the potential causes of infertilit y and rationale behind testing.-l abwork unremarkab le, aside from mild vitamin D deficiency --Transvag inal ultrasound wnl- The patient was asked to have her collect a semen analysis; informatio n given on locations to complete- Discussed the fertile time of the cycle and options for tracking ovulation, including ovulation predictor kits;will draw CD21 progestero ne with this cycle to confirm ovulation- - Discussed ovulation induction would be considered only after behavioral interventi ons were implemente d and after partner completes semen analysis. [id number] [facility] [address],[place] [address] 03/07/2024 15:17:27 03/07/2024 15:47:18 screening 892943893 Z36.87 Z3A.01 [id number] CANDY CRAWLEY MD [place] [address],[place] [address] 03/27/2024 14:58:40 03/27/2024 16:40:34 Nausea and vomiting 10296736 R11.2 - intermitte nt, has not improved at all since +home test- will begin reglan 10mg for PRN relief test positive 763831751 Z32.01 1. Exam today within normal limits.2. Ultrasound today confirms GA and viability. EDC . GC/Clamydi a testing done: will f/u as indicated. 4. ACOG guidelines and plan of care for reviewed with patient. All questions answered.5 . Return to office at 12 weeks for new OB visit6. Will need new OB labs at next visit.7. Genetic screening: desires [id number] [facility] [address],[place] [address] 03/27/2024 14:59:02 03/27/2024 15:42:24 [id number] Imelda Escalante [place] [address],[place] [address] 04/24/2024 15:43:21 04/24/2024 16:35:01 Gestation period, 12 weeks 28985487 Z3A.12 [id number] Lizzy Santosnoelle [place] [address],[place] [address] 04/24/2024 15:45:27 04/24/2024 17:28:40 Nausea and vomiting 14838389 R11.2 - intermitte nt, has not improved at all since +home test- will trial [email or web address] Gestation period, 12 weeks 78823436 Z3A.12 [id number] CANDY CRAWLEY MD [facility] [address],[place] [address] 05/22/2024 15:35:43 05/22/2024 17:36:33 Headache 01812644 R51.9 Gestation period, 16 weeks 34815521 Z3A.16 [id number] Shaunna Sheffield [place] [address],[place] [address] 06/20/2024 15:14:11 06/20/2024 16:52:53 screening for malformation [id number] Z36.3 O26.872 Z3A.20 [id number] CANDY CRAWLEY MD [facility] [address],[place] [address] 06/21/2024 11:50:40 06/24/2024 10:13:33 Short cervical length in [id number] O26.879 - continue vaginal progestero ne Gestation period, 20 weeks 35698202 Z3A.20 [id number] CANDY CRAWLEY MD [facility] [address],[place] [address] 07/17/2024 15:32:58 07/18/2024 17:57:39 Cervical cerclage suture present 62818225 O34.32 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 Gestation period, 24 weeks 024637887 Z3A.24 [id number] CANDY CRAWLEY MD [facility] [address],[place] [address] 08/14/2024 09:30:04 08/14/2024 10:43:40 Cervical cerclage suture present 17347927 O34.32 Gestation period, 28 weeks 09338417 Z3A.28 [id number] CANDY CRAWLEY MD [facility] [address],[place] [address] 08/27/2024 09:28:32 08/27/2024 10:12:13 Cervical cerclage suture present 86776175 O34.32 Gestation period, 29 weeks 89467871 Z3A.29 [id number] Imelda Escalante [facility] [address],[place] [address] 09/09/2024 11:27:25 09/09/2024 11:59:15 Cervical incompetence 11702895 O34.33 Z3A.31 [id number] CANDY CRAWLEY MD [facility] [address],[place] [address] 09/09/2024 11:29:07 09/09/2024 12:51:33 Gestational diabetes mellitus 54103604 O24.410 Short cerv ical length in 267190461 O26.879 - continue vaginal progestero ne Cervical c erclage suture present 09902375 O34.32 Gestation period, 31 weeks 20289335 Z3A.31 [id number] CANDY CRAWLEY MD [facility] [address],[place] [address] 09/24/2024 15:30:30 10/02/2024 02:44:32 Gestational diabetes mellitus 38295454 O24.410 Cervical c erclage suture present 37249785 O34.32 Gestation period, 34 weeks 70339002 Z3A.34 [id number] CANDY CRAWLEY MD [facility] [address],[place] [address] 10/09/2024 14:27:52 10/10/2024 09:40:05 -induced hypertension 72274575 O13.9 - asymptomat ic- 2nd mild range BP today- recommend labs today, testing Monday, and delivery at 37 weeks (10/16)- return precaution s discussed Gestationa l diabetes mellitus 29898025 O24.410 - well controlled Cervical c erclage suture present 55803817 O34.33 - cerclage removed without issue- labor precaution s discussed Gestation period, 36 weeks 20796934 Z3A.36 - GBS collected [id number] Imelda Escalante [facility] [address],[place] [address] 10/11/2024 09:02:36 10/11/2024 09:40:51 -induced hypertension 59650079 O13.9 Z3A.36 [id number] Nany Maldonado [facility] [address],[place] [address] 10/11/2024 09:02:57 10/11/2024 10:33:05 Chronic hypertension complicating AND/OR reason for care during 99705915 O16.9 Health Concerns Section Related Observation LastModified by Organization Detai ls LastModified Time None Recorded Concern Status LastModified by Organization Details LastModified Time None Recorded Advance Directives Directive None Recorded Payers Encounter Date Sequence Insurance Name Policy Number Policy Gambino Covered Member ID Gambino Member ID Guarantor Name 09/09/2024 1 [place] [id number] Taylor Romero [id number] Taylor Romero 09/24/2024 1 [place] [id number] Taylor Romero [id number] Taylor Romero 10/09/2024 1 [place] [id number] Taylor Romero [id number] Taylor Romero 10/11/2024 1 [place] [id number] Taylor Romero [id number] Taylor Romero 10/11/2024 1 [place] [id number] Taylor Romero [id number] Taylor Rmoero OBGyn Episode Ob Episode Information Episode Created Date Number of Fetuses Patient Bloodtype Patient rh Status Prepregnancy Weight lbs Domestic Partner Domestic Partner Phone Father Name Primary Care Md Status 04/24/20 24 1 O Positive OPEN Fetus Data First Name Last Name Admitted to NICU Weight (g) Sex Living Outcome Pediatric Complications Fetus ID Race Codes Race Delivery Type [id number] Problems Problem [address] [facility] 07/02 11:15 US only no further appts with [facility] schedule 32wk us Problem Name Start Date End Date Resolution Snomed Code Not e Short cervical length in 06/20/2024 [id number] 1.43 - 2.30cm C L. Starting 200mg vag progesterone @ HS. Cerclage 06/26/24 @ [facility] Per [facility] Cervical lenght us every 1-2wks until 24wksCL at [facility] on 07/02/24 -induced hypertension [id number] gestational hypertension, testing, weekly labs, delivery at 37 weeks Gestational diabetes mellitus 84879454 BS QID, serial growth Saleem Calculation Initial Saleem Date Initial Exam Date Initial Exam Provider Initial Ultrasound Date Last Menstrual Period Date Ultra Sound Weeks Gestation 11/06/2024 04/24/2024 03/27/2024 8 Eighteen To Twenty Week Saleem Update Ultra Sound Date Fundal Height At Umbil Quickening Date Ultra Sound Latest Weeks Gestation Final Saleem Confirmed By Final Saleem Confirmed Date Final Saleem Date Ultra Sound Latest Days Gestation 0 0 Pre- Flowsheet Flowsheet Date 04/24/2024 Stephen Score Blood Edema Fundus Height Fundus Units Glucose Ketones Leukocytes Nitrite Labor Signs Protein Cervic Dilation Cervic Effacement Cervic Station Type Weight in lbs Pre/Post Dialysis Refused Weight 163.555301613589 BP Diastolic BP Location Tested BP Systolic BP Type 84 151 Fetus Heart Rate Present A 159 Fetus Movement Comments Presents to establish prenat al care. Doing well, though nausea worsening. Will trial zofran. No cramping or bleeding. NT/NB wnl today. Desires NIPT, will draw today with new OB labs. BP elevated, patient has been checking at home and have been normal. Recommend checking cuff at next visit. RTC 4 weeks. Flowsheet Date 05/22/2024 Stephen Score Blood Edema Fundus Height Fundus Units Glucose Ketones Leukocytes Nitrite Labor Signs Protein Cervic Dilation Cervic Effacement Cervic Station Type Weight in lbs Pre/Post Dialysis Refused Weight 161.153399983496 BP Diastolic BP Location Tested BP Systolic BP Type 86 135 Fetus Heart Rate Present A 155 Fetus Movement A Yes Comments Cramping and nausea improved . Reports increased migraines, likely due to dehydration. Discussed hydration goals as well as B2. Discussed anatomy US for next visit. Getting June 22! BP still normal at home. RTC 4 weeks. Flowsheet Date 06/20/2024 Stephen Score Blood Edema Fundus Height Fundus Units Glucose Ketones Leukocytes Nitrite Labor Signs Protein Cervic Dilation Cervic Effacement Cervic Station Type Weight in lbs Pre/Post Dialysis Refused BP Diastolic BP Location Tested BP Systolic BP Type Fetus Heart Rate Present Fetus Movement Comments Flowsheet Date 06/21/2024 Stephen Score Blood Edema Fundus Height Fundus Units Glucose Ketones Leukocytes Nitrite Labor Signs Protein Cervic Dilation Cervic Effacement Cervic Station neg none none trace Type Weight in lbs Pre/Post Dialysis Refused 162.645405795634 BP Diastolic BP Location Tested BP Systolic BP Type 77 L arm 123 sitting Fetus Heart Rate Present A 145 Fetus Movement A Yes Comments Good movement. No cram ping or bleeding. Anatomy US yesterday demonstrates borderline short cervix with valsalva (2.5 to 1.4cm). Discussed vaginal progesterone supplementation and referral to M for repeat cervical length. Discussed risks and benefits as well as possible need for cerclage if cervix shortens further. Patient voices understanding. Will follow up on MFM referral next week. Warning signs reviewed. RTC 4 weeks. Flowsheet Date 07/17/2024 Stephen Score Blood Edema Fundus Height Fundus Units Glucose Ketones Leukocytes Nitrite Labor Signs Protein Cervic Dilation Cervic Effacement Cervic Station neg none none trace Type Weight in lbs Pre/Post Dialysis Refused 172.085521229955 BP Diastolic BP Location Tested BP Systolic BP Type 81 L arm 141 sitting Fetus Heart Rate Present A 145 Fetus Movement A Yes Comments Doing well, baby active. Aft er anatomy US, had some cramping and was seen at [facility]. Cerclage placed for continued shortened cervical length. Doing well post cerclage placement, having trouble remembering vaginal progesterone. Encouraged patient to continue vaginal progesterone. Discussed cerclage removal at 36 weeks or earlier if labor occurs. Will repeat growth US at 32 weeks for circumvallate placenta. Discussed GCT and labs for next visit. RTC 4 weeks. Flowsheet Date 08/14/2024 Stephen Score Blood Edema Fundus Height Fundus Units Glucose Ketones Leukocytes Nitrite Labor Signs Protein Cervic Dilation Cervic Effacement Cervic Station Type Weight in lbs Pre/Post Dialysis Refused Weight 175.899691106550 BP Diastolic BP Location Tested BP Systolic BP Type 81 L arm 129 sitting Fetus Heart Rate Present A 150 Fetus Movement A Yes Comments Patient c/o of pelvic pain, and back pain. Also reports fatigue. GOod movement. No cramping or bleeding. Continues on vaginal progesterone. Discussed GCT and labs today. RTC 2 weeks. Flowsheet Date 08/27/2024 Stephen Score Blood Edema Fundus Height Fundus Units Glucose Ketones Leukocytes Nitrite Labor Signs Protein Cervic Dilation Cervic Effacement Cervic Station neg none Type Weight in lbs Pre/Post Dialysis Refused Weight 178.003373895551 BP Diastolic BP Location Tested BP Systolic BP Type 86 L arm 136 sitting Fetus Heart Rate Present A 125 Fetus Movement A Yes Comments Patient c/o of back and hip pain. No cramping or bleeding. Good movement. 3h GTT today. Otherwise doing well. Repeat growth with next visit. RTC 2 weeks. Flowsheet Date 09/09/2024 Stephen Score Blood Edema Fundus Height Fundus Units Glucose Ketones Leukocytes Nitrite Labor Signs Protein Cervic Dilation Cervic Effacement Cervic Station Type Weight in lbs Pre/Post Dialysis Refused BP Diastolic BP Location Tested BP Systolic BP Type Fetus Heart Rate Present Fetus Movement Comments Flowsheet Date 09/09/2024 Stephen Score Blood Edema Fundus Height Fundus Units Glucose Ketones Leukocytes Nitrite Labor Signs Protein Cervic Dilation Cervic Effacement Cervic Station neg none Type Weight in lbs Pre/Post Dialysis Refused Weight 179.627862959730 BP Diastolic BP Location Tested BP Systolic BP Type 93 L arm 140 sitting Fetus Heart Rate Present A 146 Fetus Movement A Yes Comments Patient c/o of slight nausea , Sai Simms, and slight swelling in hands. Good movement, no cramping or bleeding. Tdap and RSV discussed. Discussed preadmission. Discussed glucose checking and diet teaching. Some fastings elevated, will start bedtime snack. EFW 23%, normal JULES. BP mildly elevated today, will continue to monitor closely. RTC 2 weeks. Flowsheet Date 09/24/2024 Stephen Score Blood Edema Fundus Height Fundus Units Glucose Ketones Leukocytes Nitrite Labor Signs Protein Cervic Dilation Cervic Effacement Cervic Station neg none Type Weight in lbs Pre/Post Dialysis Refused Weight 181.354010717249 BP Diastolic BP Location Tested BP Systolic BP Type 86 L arm 137 sitting Fetus Heart Rate Present A 135 Fetus Movement A Yes Comments Patient c/o of slight nausea , [place] Simms. Good movement. No cramping or bleeding. Glucose overall wnl. BP wnl today. Will plan for cerclage removal at 36 week appointment. RTC 2 weeks. Flowsheet Date 10/09/2024 Stephen Score Blood Edema Fundus Height Fundus Units Glucose Ketones Leukocytes Nitrite Labor Signs Protein Cervic Dilation Cervic Effacement Cervic Station neg trace 3cm 70% -2 Type Weight in lbs Pre/Post Dialysis Refused Weight 184.642679097260 BP Diastolic BP Location Tested BP Systolic BP Type 91 L arm 141 sitting Fetus Heart Rate Present A 140 Fetus Movement A Yes Comments Patient c/o of Sai Simms . Along with swelling in legs and feet. Good movement. Discussed new diagnosis of gestational hypertension given second elevated BP today. Denies symptoms of preeclampsia. Discussed recommendation for labs today, testing on Monday, and delivery at 37 weeks. Patient voices understanding. GDM well controlled per patient. Cerclage removed today without issue, see procedure note. Labor precautions reviewed. RTC for testing. Flowsheet Date 10/11/2024 Stephen Score Blood Edema Fundus Height Fundus Units Glucose Ketones Leukocytes Nitrite Labor Signs Protein Cervic Dilation Cervic Effacement Cervic Station Type Weight in lbs Pre/Post Dialysis Refused BP Diastolic BP Location Tested BP Systolic BP Type Fetus Heart Rate Present Fetus Movement Comments Flowsheet Date 10/11/2024 Stephen Score Blood Edema Fundus Height Fundus Units Glucose Ketones Leukocytes Nitrite Labor Signs Protein Cervic Dilation Cervic Effacement Cervic Station Type Weight in lbs Pre/Post Dialysis Refused Weight 186.453387588615 BP Diastolic BP Location Tested BP Systolic BP Type 82 L arm 141 sitting Fetus Heart Rate Present Fetus Movement Comments Menstrual History Last Menstrual Date Menses Monthly On Bcp Conception Prior Menses Frequency Hcg Plus Date Menarche Onset Age Delivery Information Delivery Date Delivery Type Labor Anesthesia Weeks Gestation Incision Type Labor Labor Length Hrs Delivered By Post Complications Tubal Sterilization Discharge Date Comments Discharge Information Feeding Method Contraceptive Method Maternal HG B and HCT Levels
--- OUTSIDE RECORDS SUMMARY | 2024-10-14 08:42 | XMS_ITS | Clinical Summary ---
Author Organization [facility] Address [address] [place] [address] Care Team Providers Care Interactive Media Director Name Role Phone Kishor Giang MD Primary Care Provider [phone] Source Comments [facility],non-owned Affiliates and Associated Physician Practices is amultiple site organization consisting of ambulatory clinics and hospital sitesin [place], [place], [place] and [place]. This disclosure is being madepursuant to the Care Everywhere program and may not contain all information available regarding this patient. Last updated 18.[facility] Allergies No known active allergies Medications * [...] 01/07/2014,04/01/1999,1998 ,1998 TDAP (7yrs+) 05/03/2010 VARICELLA 01/07/2014 Family History Medical History Relation Name Comments Cancer Paternal Grandfather brain Relation Name Status Comments Paternal Grandfather Social History Tobacco Use Types Packs/Day Years [...] and heating? Not hard at all 06/25/2024 [facility] [place] [facility] Occup[facility] ional Health - Occupational Stress [...] place to sleep or slept in a retirement (including now)? No 06/25/2024 Estimated Date of [...] Mass Index 26.96 06/25/2024 11:18 AM CDT Plan of Treatment Upcoming Encounters Date Type Department Care Team (Late st Contact Info) Description 11/06/2024 Hospital Encounter [facility] [address] [place] [address] Health Maintenance Due Date Last Done Comments HIV SCREENING 2013 HEPATITIS C SCREENING 01/08/2016 DTAP/TDAP/TD VACCINES (6 - Td or Tdap) 05/03/2020 05/03/2010, 10/26/1999, 04/01/1999, Additional history exists COVID-19 VACCINE ( season) 2024 INFLUENZA VACCINE (#1) 2024 08/16/2010 OB-ONE HOUR GLUCOSE 07/31/2024 OB-TDAP CURRENT 08/07/2024 05/03/2010 Respiratory Syncytial Virus (RSV) Vaccine Pt: or over 60 yrs (1 - Risk 1-dose series) 09/11/2024 DEPRESSION SCREENING 09/18/2024 OB-GROUP B STREP SCREEN 10/02/2024 PAP SMEAR 03/27/2027 03/27/2024 ZOSTER VACCINE (1 of 2) 01/13/2048 HEPATITIS B VACCINE Completed 1998, 1998, 1998 HIB VACCINE Completed 10/26/2009, 03/18, 1998, Additional history exists HPV VACCINE Completed 04/03/2013, 03/19, 05/03/2010 MENINGOCOCCAL VACCINE Aged Out 04/03/2013 No lionel rosalie eligible based on patient's age to complete this topic MENINGOCOCCAL (Group B) VACCINE Aged Out No longer eligible based on patient's age to complete this topic PNEUMOCOCCAL VACCINE Aged Out No long er eligible based on patient's age to complete this topic Advance Directives * Full Code (Latest Code Status on File) Date Activated Date Inactivated Comments 06/25/2024 3:24 PM 06/26/2024 6:09 PM * Full Code Date Activated Date Inactivated Comments 06/25/2024 11:25 AM 06/25/2024 3:24 PM Care Teams Interactive Media Director Relationship Specialty Start Date End Date Kishor Giang MD [address] [address] PCP - General Pediatrics 01/07/14
[2024-10-14] MEDS: LACTATED RINGERS 1,000 ML 125 ML IV CONT ×2 (09:10→10:14)
[2024-10-14 09:15] LABS: Basophils Absolute Auto 0.1 K/mm3 (0.0-0.1); Basophils Percent Auto 0.4 % (0.2-1.2); Eosinophils Absolute Auto 0.2 K/mm3 (0-0.3); Eosinophils Percent Auto 1.8 % (0-4.4); Hematocrit 39.1 % (37.0-47.0); Hemoglobin 12.5 g/dL (12.0-15.0); Immature Granulocyte Absolute 0.07 K/mm3 (0.00-0.031); Immature Granulocyte Percent A 0.6 % (0-0.5); Lymphocytes Percent Auto 25.2 % (18.3-44.2); Mean Corpuscular Hemoglobin 26.7 pg (26-34); Mean Corpuscular Volume 83.5 fl (80-100); Mean Platelet Volume 11.8 fl (7.4-10.4); Monocytes Absolute Auto 0.8 K/mm3 (0.1-0.6); Neutrophils Absolute Auto 7.2 K/mm3 (1.3-6.7); Platelet Count Result 219 k/mm3 (150-375); Red Blood Count 4.68 M/mm3 (4.2-5.4); Red Cell Distribution Width 13.5 % (11.5-14.5); White Blood Count 11.1 K/mm3 (4.5-10.0)
[2024-10-14 09:45] LABS: Alanine Aminotransferase 17 U/L (6-35); Albumin Level 3.4 g/dL (3.5-5.1); Alkaline Phosphatase 149 U/L (38-126); Anion Gap 10 mmol/L (4-12); Aspartate Amino Transferase 20 U/L (14-36); Bilirubin,Total 0.6 mg/dL (0.2-1.3); Blood Urea Nitrogen 12 mg/dL (7-17); Carbon Dioxide 22 mmol/L (22-30); Chloride 104 mmol/L (98-107); Estimated CRCL calculation 119 ml/min; Estimated Glomerular Filt Rate > 60; Glucose 88 mg/dL (65-110); Potassium 4.1 mmol/L (3.4-5.0); Sodium 136 mmol/L (137-145); Uric Acid 6.6 mg/dL (2.5-7.5)
[2024-10-14 09:54] LABS: Rapid Plasma Reagin Non-Reactive (NonReactive)
[2024-10-14 10:23] LABS: HIV 1/2 Ab P24 Ag Result Negative (Negative)
[2024-10-14] MEDS: ONDANSETRON INJ 4 MG/2 ML VIAL IV PUSH (10:27)
[2024-10-14 10:38] LABS: Glucose Point of Care 94 mg/dl (65-105)
[2024-10-14] MEDS: OXYTOCIN 30 UNITS/NS 500 ML 30 UNITS/500 ML BAG IV CONT (11:33)
--- NOTE | 2024-10-14 12:04 | P.PNAN_ITS ---
Anes - Initial Pre Proc Eval Date/Time: 10/14/24 12:04 Surgeon: Mazin Carmona MD Pre Op Diagnosis: SROM Patient Data Age: 24 Gender: F Height: 1.65 m Weight: 83 kg Last Vital Signs Temp 36.2 C L 10/14/24 11:30 Pulse 75 10/14/24 12:01 BP 117/70 10/14/24 12:01 Pulse Ox 99 10/14/24 12:01 Allergies Allergy/AdvReac Type Severity Reaction Status Date / Time No Known Allergies Allergy Unverified 06/27/17 14:59 Home Medications ?Medication ?Instructions ?Recorded ?Confirmed ?Type No Home Medications 10/14/24 10/14/24 History Laboratory Tests 10/14/24 10/14/24 08:40 10:27 WBC 11.1 H K/mm3 (4.5-10.0) RBC 4.68 M/mm3 (4.2-5.4) Hgb 12.5 g/dL (12.0-15.0) Hct 39.1 % (37.0-47.0) MCV 83.5 fl (80-100) MCH 26.7 pg (26-34) MCHC 32.0 g/dl (32-36) RDW 13.5 % (11.5-14.5) Plt Count 219 k/mm3 (150-375) MPV 11.8 H fl (7.4-10.4) Immature Gran % (Auto) 0.6 H % (0-0.5) Neut % (Auto) 65.0 % (45.5-73.1) Lymph % (Auto) 25.2 % (18.3-44.2) [place] % (Auto) 7.0 % (2.6-8.5) Eos % (Auto) 1.8 % (0-4.4) Baso % (Auto) 0.4 % (0.2-1.2) Lymph # (Auto) 2.80 K/mm3 (0.9-3.2) [place] # (Auto) 0.8 H K/mm3 (0.1-0.6) Eos # (Auto) 0.2 K/mm3 (0-0.3) Baso # (Auto) 0.1 K/mm3 (0.0-0.1) Abs Immat Gran (auto) 0.07 H K/mm3 (0.00-0.031) Absolute Neuts (auto) 7.2 H K/mm3 (1.3-6.7) Absolute Nucleated RBC 0.000 K/mm3 (0.0-0.012) Nucleated RBC % 0.0 % (0.0-0.2) Sodium 136 L mmol/L (137-145) Potassium 4.1 mmol/L (3.4-5.0) Chloride 104 mmol/L (98-107) Carbon Dioxide 22 mmol/L (22-30) Anion Gap 10 mmol/L (4-12) BUN 12 mg/dL (7-17) Creatinine 0.65 L mg/dL (0.7-1.0) Estim Creat Clear Calc 119 ml/min Estimated GFR > 60 (59 - ) Glucose 88 mg/dL (65-110) POC Capillary Glucose 94 mg/dl (65-105) Uric Acid 6.6 mg/dL (2.5-7.5) Calcium 9.0 mg/dL (8.4-10.2) Total Bilirubin 0.6 mg/dL (0.2-1.3) AST 20 U/L (14-36) ALT 17 U/L (6-35) Alkaline Phosphatase 149 H U/L (38-126) Total Protein 8.0 g/dL (6.3-8.2) Albumin 3.4 L g/dL (3.5-5.1) RPR Non-reactive (NonReactive) HIV 1&2 Ab/P24 Ag 4thGn Negative (Negative) Blood Type O Positive Antibody Screen Negative Patient hx anesthesia problems: none Family hx anesthesia problems: none Results Review: All pre-operative results and documents have been reviewed as part of the pre- operative evaluation. [facility] Social History Social History Smoking status: Never smoker Substance use: never Do You Feel Safe in your Home?: Yes Lack of Transportation: No Lack of Food: Never True Current Housing: I Have Housing Concerned About Future Housing: No Difficulty Paying Gas/Electric Bills: No Difficulty Paying for Meds: No Currently Unemployed: No Education: High School Diploma/GED Difficulty w/ Childcare or Family Care: No Spiritual care concerns: No Anes - Eval Final PreProcedure Day of Procedure 10/14/24 12:04 Patient weight: overweight Heart: regular rate and rhythm Lungs: clear to auscultation Airway: Mallampati scale class II Neurological: alert and oriented ASA classification: II Emergent: no Anesthetic plan: proceed Anesthesia type and monitoring: regional epidural and standard monitoring Results Review: All pre-operative results and documents have been reviewed as part of the pre-operative evaluation. Informed Consent: The patient's anesthetic plan and its attendant risks and benefits were discussed with the patient/family/POA. Questions were solicited and answers provided to the satisfaction of the patient/family/POA.
[2024-10-14 12:38] LABS: Glucose Point of Care 83 mg/dl (65-105)
[2024-10-14 14:37] LABS: Glucose Point of Care 70 mg/dl (65-105)
--- NOTE | 2024-10-14 15:45 | PM.OBPRVD ---
OB - Vaginal Delivery Note Procedure Delivery date: 10/14/24 Events: Gestational Diabetes and Gestational Hypertension Delivery augmentation: Pitocin Delivery monitor: External FHT and External Uterine Route of delivery: Episiotomy description: None Laceration Description: Perineal - 2nd Degree Delivery repair: vicryl Specimen: Yes Quantitative Blood Loss (ml): 300 Anesthesia type: Epidural Disposition: Floor Complications: No immediate complications Baby Date of : 10/14/24 Time of : 15:32 Gestational Age by Date: 36 Infant gender: Female presentation: vertex position: Left Occiput Anterior Placenta delivery description: Spontaneous Cord Vessel Description: 3 Vessels and Delayed Cord Clamping score one minute: 8 score five minutes: 9
[2024-10-14] MEDS: OXYTOCIN 30 UNITS/NS 500 ML 30 UNITS/500 ML BAG 125 UNITS IV CONT (16:08)
--- NOTE | 2024-10-14 16:30 | PC.NURSE ---
Nursery RN called for feeding assistance. Mom has large breasts and flat nipples. The tissue is soft enough to make a teacup latch and baby is eager and able to hold the latch while suckling. When she stops sucking, she loses the latch. Mom was shown the cradle and the cross cradle holds. Educated mom on holding a 'bite' for baby so she can maintain the latch easier. Mom needs maximum assist with positioning and holding baby. Discussed trying football hold at the next feeding. Baby fed off and on for 10 minutes. Baby then held the breast in her mouth and wouldn't suckle again. Mom wanted to let baby rest so we placed her skin to skin with mom. Mom knows that baby should be offered the breast any time she appears hungry or gives feeding cues. Also encouraged consistent skin to skin to facilitate feedings. Mom verbalizes understanding of the information shared and will need reinforcement and further assistance and education. A nipple shield may be needed at future feedings, especially if mom struggles to hold baby and her breast consistently. Reported to nursery RN.
[2024-10-14] MEDS: IBUPROFEN 600 MG TABLET PO (18:35)
[2024-10-14] MEDS: WITCH HAZEL 40 PADS 1 PAD TOPICAL (21:00)
[2024-10-14] MEDS: BENZOCAINE 20% AER SPR (*SP) 56 GM CAN 1 SPRAY TOPICAL (21:00)
--- NOTE | 2024-10-14 21:14 | OBPPTRN ---
Patient transferred to post room #281 via wheelchair. Support person present. Oriented to unit, room, information board, rooming in, admission packet and security measures. Patient verbalizes understanding.
[2024-10-15] MEDS: ACETAMINOPHEN 325 MG TABLET 650 MG PO ×3 (01:00→21:16)
[2024-10-15] MEDS: IBUPROFEN 600 MG TABLET PO ×3 (01:00→17:23)
[2024-10-15 01:10] VITALS: BP 125/79; PULSE 83; RESP 16; TEMP 36.6; O2SAT 98
--- NOTE | 2024-10-15 01:26 | PC.NURSE ---
patient was set up with a breast pump due to baby being in level two nursery. patient was educated on pumping for 15 minutes every 2-3 hours in order to stimulate milk production. patient is aware that pump will be in express mode unless changed and that it will auto shut off in 15 minutes.
[2024-10-15 04:50] VITALS: BP 117/74; PULSE 83; RESP 16; TEMP 36.2; O2SAT 97
[2024-10-15 05:48] LABS: Hematocrit 32.7 % (37.0-47.0); Hemoglobin 10.4 g/dL (12.0-15.0)
[2024-10-15] MEDS: DOCUSATE SODIUM 100 MG CAPSULE PO (07:56)
[2024-10-15] MEDS: MULTIVIT/MIN/PREN/FOL AC/IRON TABLET 1 TAB PO (07:56)
[2024-10-15 08:10] VITALS: BP 141/98; PULSE 77; RESP 16; TEMP 36.4; O2SAT 97
--- NOTE | 2024-10-15 12:46 | P.PNOB_ITS ---
OB - PN: Subj Subjective Date/time seen: 10/15/24 12:46 Interval history: PPD#1 s/p Doing well, pain controlled Baby being monitored for blood sugars Voiding without issue OB - PN: Obj Data Labs 10/15/24 04:47 10/14/24 08:40 Labs: Laboratory Results - last 24 hr 10/14/24 10/15/24 14:34 04:47 Hgb 10.4 L Hct 32.7 L POC Capillary Glucose 70 OB - PN A/P Assessment and Plan (1) (spontaneous vaginal delivery): Code(s): O80 - Encounter for full-term uncomplicated delivery Status: Acute Plan day: 1 Plan: routine care Time Spent With Patient Time: Total time spent is greater than 50% in coordination of care (as documented) at patient's floor/unit and/or counseling patient: Review of Systems 2 Review of Systems: All systems reviewed & are unremarkable except as noted in HPI and below Exam 2 Const: General: comfortable and no acute distress O rientation/consciousness: patient oriented x3 Resp: Effort & Inspection: normal respiratory effort
[2024-10-15 13:08] VITALS: BP 122/65; PULSE 79; RESP 18; TEMP 36.6; O2SAT 96
--- NOTE | 2024-10-15 13:45 | PC.NURSE ---
Reviewed use of the Medela breast pump with patient. She states it was a little painful last night and she couldn't remember all the instructions given by the night RN. Patient has only pumped once and does desire to put baby to breast but told the animal nursery worker it's 'uncomfortable' in the hospital and she will probably just breastfeed when she gets home. Educated on need to stimulate the breasts and remove milk to make milk. Patient was discouraged about only having drops of colostrum last night but reassured her that this is normal in the immediate period. Encouraged consistent pumping every three hours and we discussed how to use any pumped milk she gets. Also that pumping shouldn't hurt and that she should adjust the suction to the highest comfortable setting. Baby is receiving 22cal formula at this time and discussed with mom that there are different options for providing breastmilk to baby, directly at breast or by pumping. She has several breast pumps at home. Reinforced that consistency is the most important thing she can do right now so that she initiates a good milk supply. Patient verbalized understanding but may need reinforcement and additional pumping assistance. Encouraged mom to find out when baby will feed again so that she can coordinate getting any pumped milk down to the level 2 nursery or so she can attempt to breastfeed when baby is due to eat. Baby is not on IV fluids or oxygen per mom. Reported to patient's primary RN.
--- NOTE | 2024-10-15 14:38 | WPDANLDPN2 ---
Anes-Prog Note L&D Date/Time: 10/15/24 14:38 Comfortable throughout: labor and delivery Epidural/Spinal procedure site: clean & non-tender Neuro status: Neuro function grossly intact. Cardiovascular status: normal Respiratory status: normal Airway patency: baseline Mental status: baseline Post-Op hydration status: normal Vital Signs: Last Vital Signs Temp 97.8 F 10/15/24 13:08 Pulse 79 10/15/24 13:08 Resp 18 10/15/24 13:08 BP 122/65 10/15/24 13:08 Pulse Ox 96 10/15/24 13:08 O2 Del Method Room Air 10/14/24 21:20 Pain score (VAS): 0 I/O: Intake & Output 10/14/24 10/15/24 10/15/24 23:59 07:59 15:59 Intake Total 1000 500 480 Output Total 135 1800 Balance 865 -1300 480 Patient feedback: Patient satisfied with anesthetic care.
[2024-10-15 20:25] VITALS: BP 131/89; PULSE 67; RESP 18; TEMP 37.1; O2SAT 99
[2024-10-15 23:40] VITALS: BP 123/72; PULSE 82; RESP 16; TEMP 37.2; O2SAT 98
[2024-10-16] MEDS: IBUPROFEN 600 MG TABLET PO (02:04)
[2024-10-16 04:20] VITALS: BP 125/83; PULSE 80; RESP 16; TEMP 37.1; O2SAT 98
[2024-10-16] MEDS: MULTIVIT/MIN/PREN/FOL AC/IRON TABLET 1 TAB PO (07:01)
[2024-10-16] MEDS: ACETAMINOPHEN 325 MG TABLET 650 MG PO (07:01)
--- NOTE | 2024-10-16 07:31 | P.PNOB_ITS ---
OB - PN: Subj Subjective Date/time seen: 10/16/24 07:31 Interval history: PPD#2 s/p Doing well, pain controlled Baby being monitored for blood sugars Voiding without issue OB - PN: Obj Data Labs 10/15/24 04:47 10/14/24 08:40 OB - PN A/P Plan day: 2 Plan: routine care and discharge home Time Spent With Patient Time: Total time spent is greater than 50% in coordination of care (as documented) at patient's floor/unit and/or counseling patient: Review of Systems 2 Review of Systems: All systems reviewed & are unremarkable except as noted in HPI and below Exam 2 Const: General: cooperative, healthy appearing and comfortable Chest: Chest palpation & inspection: normal inspection of the chest Resp: Effort & Inspection: normal respiratory effort Cardio: Rate: regular rate Back/Spine/Pelvis: Back: no CVA tenderness Skin: General skin exam: normal color
--- NOTE | 2024-10-16 07:36 | PM.OBDSVD ---
DS: Admitting Diagnosis Discharge Date 10/16/24 Admitting Diagnosis labor DS: Discharge Diagnosis Discharge Diagnosis (1) (spontaneous vaginal delivery): Code(s): O80 - Encounter for full-term uncomplicated delivery Status: Acute OB - DS: Summary OB Procedures : None OB Procedures Intrapartum: Spontaneous Vag Delivery OB Procedures: : None Peripartum Data Laceration Description: Perineal - 2nd Degree Episiotomy description: None Time Spent with Patient Time attestation: Total time spent providing and/or coordinating discharge services: DS: Data Data Completed and Pending Pending studies at discharge: Pending at discharge 10/14/24 16:54 Surgical [PTH] Routine Discharge Plan Discharge Attending physician on discharge: Mazin Carmona Consulting providers: Linn Pimentel Discharging Clinician: Linn Pimentel Activity: pelvic rest Diet: regular Patient Language: Khmer Discharge Medications: No Action No Home Medications Date of admission: 10/14/24 08:07 Primary Care Provider: [facility] Admitting Provider: Mazin Carmona Attending physician on admission: Mazin Carmona Condition: Stable
[2024-10-16 08:15] VITALS: BP 132/89; PULSE 71; RESP 16; O2SAT 97
--- NOTE | 2024-10-16 10:55 | PC.NURSE ---
Introductions were made, then consulted with patient to assess needs related to . Discussed with mother her?plans to feed?her and the?experience so far. Resources provided for inpatient and outpatient services with the feeding sheet, mom/baby guide and name written on the communication board. RN went over instructions given on cleaning, care, usage, that there should be no pain, pumping schedule for milk production, collection, and storage of human milk. Patient had already been assessed for correct placement, flange size, to pump for comfort and nipple stretching/stimulation for adequate milk production every 3 hours (8 times in 24 hours) 1-2 times at night. Parents are encouraged to record the pumping schedule on the feeding sheet.?Mother voiced understanding of the education shared along with mom/baby guide and the pump measurement, flange fit handout for additional resource information. has had appropriate feedings in the last 24 hours meets the outcomes for weight, output, blood sugar and jaundice at this time. Reinforced understanding of milk production, transition of milk, signs of adequate intake, transition of stool, prevention/relief of engorgement, plugged ducts, mastitis, responsive watching for feeding cues, community resources, and when to call a provider using the resource of the feeding sheet along with the mom and baby guide. Mother voiced understanding of the information shared, is confident to continue pumping and bottle feeding her at home, when to call for assistance, denies any additional assistance or education at this time. Reported to the Primary RN.
[2024-10-17 09:37] VITALS: BP 134/88; PULSE 86; RESP 18; TEMP 36.6; O2SAT 99
== END 2024-10-16 13:11 | disposition home or self-care (01) | DRG 807 ==
LOC: ANHLDR 09:50 → ANHOB2 22:22
PROVIDERS: Advanced Practice Midwife; Admitting Provider Obstetrics & Gynecology; PCP Family Medicine Sports Medicine; Visit Provider Obstetrics & Gynecology
DX: O24.429 Gestational diabetes mellitus in childbirth, unspecified control (principal); Z37.0 Single live birth; Z3A.36 36 weeks gestation of pregnancy; O13.4 Gestational [pregnancy-induced] hypertension without significant proteinuria, complicating childbirth; O70.1 Second degree perineal laceration during delivery
CPT/HCPCS: 36415; 80053; 82948; 84550; 85014; 85018; 85025; 86592; 86703; 86850; 86900; 86901; 88307; A9270; G0432; J2405; J2590; J2795; J7120